=== PATIENT | female | born 1960 | race Caucasian/White ===

== ENCOUNTER 2021-09-01 22:42 | Inpatient (IN) ==
[2021-09-01 23:45] VITALS: BMI 20.9
--- NOTE | 2021-09-02 00:01 | DR.EXTPAIN ---
HPI Time seen Time Seen by Provider: 09/01/21 23:49 PCP Primary Care Physician: TOMASZ Complaint/Symptoms Chief Complaint Doctor Comments: ABDOMINAL PAIN,VOMITING BLOOD AND DIARRHEA. Chief Complaint:: PT ARRIVED HERE VIA EMS. ON ARRIVAL PT C/O ABDOMINAL PAIN, THROWING UP BLOOD,AND BLOODY DIARRHEA. 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 Family History History of Family Medical Conditions: Yes Family Medical History: Hypertension Social History Type of Tobacco Use: Cigarettes Alcohol Use: DAILY Do you use any recreational Drugs:: No Lives With: Family Lives Where: Home Infectious screening In the last 2 months have you had wt loss of >10#?: NO Have you had fever, night sweats or hemotysis?: No Have you traveled outside the country in the last 6 months?: No Isolation: Droplet ROS Review of Systems Constitutional: Malaise Eyes: No Symptoms Reported ENTM: No Symptoms Reported Respiratoy: No Symptoms Reported Cardiovascular: No Symptoms Reported Gastrointestinal/Abdominal: Abdominal Pain Genitourinary: No Symptoms Reported Neurological: No Symptoms Reported Musculoskeletal: Muscle Pain and Other (BILATERAL LOWER LEG PAIN) Integumentary: No Symptoms Reported Hematologic/Lymphatic: No Symptoms Reported, Easy Bruising and Other (RECTAL BLEEDING) Endocrine: No Symptoms Reported Psychiatric: No Symptoms Reported All Other Systems: Reviewed and Negative PE Vital Signs Vitals: Temperature 98.7 F Pulse Rate [Left Radial] 92 Pulse Rate 98 Respiratory Rate 20 Blood Pressure [Left Arm] 115/76 Blood Pressure 117/61 O2 Sat by Pulse Oximetry 98 General Limitations: No Limitations General Appearance: Alert, In No Apparent Distress, Lethargic and In Distress (MODERATE DISTRESS) Head Head Exam: Normal Inspection Eyes Eye exam: Normal Appearance ENT ENT Exam: Normal Exam Neck Neck Exam: Normal Inspection Chest Chest Inspection: Normal Inspection Respiratory Respiratory Exam: Normal Lung Sounds Bilat Cardiovascular Cardiovascular Exam: Regular Rate and Normal Rhythm Abdominal Exam Abdominal Exam: Normal Inspection, Normal Bowel Sounds and Soft Extremities Extremities Exam: Normal Inspection Back Back Exam: Normal Inspection Neurological Neurological Exam: Alert, Oriented X3 and CN II-XII Intact Psychiatric Psychiatric Exam: Normal Affect and Normal Mood Skin Skin Exam: Warm, Dry, Intact and Normal Color MDM Differential Diagnosis Differential Diagnosis: Other (GI BLEED,ABDOMINAL PAIN,ALCOHOL INTOXICATION) COURSE Treatment Treatment: PATIENT WAS ANEMIC WITH HEMAGLOBIN OF 5.4 AND HCT OF 16.2. BLOOD ALCOHOL 44MG/DL. WAS GIVEN DEMEROL 25MG IV FOR PAIN AND ZOFRAN 4MG IV FOR NAUSEA. WILL TYPE AND CROSS AND TRANSFUSE 2UPRBC. TRANSFER FOR LOWER GI BLEED IF NEEDED. CONTACT LOCAL SURGEON TO CONSULT HERE IF POSSIBLE. ORDERED THE 2 UNITS OF BLOOD TO BE TRANSFUSED. SPOKE TO DR BOWERS AT 0630 AM AND HE WILL ACCEPT THE PATIENT FOR ADMISSSION FOR GI BLEED, HYPONATREMIA AND HYPOKALEMIA. THE PATIENT HAD 60MEQ OF EFFERVESCENT POTASSIUM IN ER AND 50MG OF DEMEROL FOR ABDOMINAL PAIN AND ZOFRAN 8MG IV FOR NAUSEA. ROR Labs Reviewed Laboratory Results Reviewed?: Yes (SODIUM 122 AND POTASSIUM OF 2.9.) Result Diagrams: 09/06/21 05:50 09/06/21 05:50 Laboratory: WBC 8.0 X10^3/uL (3.6-10.0) 09/02/21 00:26 RBC 1.89 X10^6/uL (3.5-5.4) L 09/02/21 00:26 Hgb 5.4 g/dL (12.0-16.0) L* 09/02/21 00:26 Hct 16.2 % (36.0-47.0) L* 09/02/21 00:26 MCV 85.4 fL (80.0-100.0) 09/02/21 00:26 MCH 28.3 pg (27.0-34.0) 09/02/21 00:26 MCHC 33.2 g/dL (33.0-35.0) 09/02/21 00:26 RDW 21.7 % (11.6-16.5) H 09/02/21 00:26 Plt Count 583 X10^3/uL (150.0-450.0) H 09/02/21 00:26 Plt Count Comment Increased (ADEQUATE) A 09/02/21 00:26 MPV 6.1 fL (7.4-11.0) L 09/02/21 00:26 Neut % (Auto) 62.8 % (42.0-75.0) 09/02/21 00:26 Lymph % (Auto) 24.9 % (21.0-51.0) 09/02/21 00:26 [place] % (Auto) 11.1 % (0.0-13.0) 09/02/21 00: Eos % (Auto) 0.7 % (0.9-2.9) L 09/02/21 00: Baso % (Auto) 0.5 % (0.2-1.0) 09/02/21 00:26 Neut # (Auto) 5.0 x10^3/uL (2.2-4.8) H 09/02/21 00:26 Lymph # (Auto) 2.0 X10^3/uL (1.3-2.9) 09/02/21 00:26 [place] # (Auto) 0.9 x10^3/uL (0.3-0.8) H 09/02/21 00:26 Eos # (Auto) 0.1 x10^3/uL (0.0-0.2) 09/02/21 00: Baso # (Auto) 0.0 X10^3/uL (0.0-0.1) 09/02/21 00: Absolute Nucleated RBC 0.0 /100WBC 09/02/21 00: Plt Morphology Comment Normal (NORMAL) 09/02/21 00: RBC Morphology Abnormal (NORMAL) A 09/02/21 00:26 Hypochromasia 1+ A 09/02/21 00: Anisocytosis 1+ A 09/02/21 00:26 Sodium 122 mmol/L (136-145) L* 09/02/21 00: Corrected Sodium TNP 09/02/21 00: Potassium 2.9 mmol/L (3.5-5.1) L* 09/02/21 00: Chloride 87 mmol/L (98-107) L 09/02/21 00: Carbon Dioxide 24.8 mmol/L (21-32) 09/02/21 00: BUN 7 mg/dL (7-18) 09/02/21 00: Creatinine 0.48 mg/dL (0.55-1.02) L 09/02/21 00:26 Est GFR (MDRD) Af Amer > 60 (>60) 09/02/21 00:26 Est GFR (MDRD) Non-Af > 60 (>60) 09/02/21 00:26 Glucose 94 mg/dL (65-99) 09/02/21 00:26 Calcium 8.1 mg/dL (8.5-10.1) L 09/02/21 00:26 Corrected Calcium 9.5 mg/dL (8.5-10.1) 09/02/21 00:26 Total Bilirubin 0.30 mg/dL (0.2-1.0) 09/02/21 00:26 AST 20 Units/L (15-37) 09/02/21 00:26 ALT 14 Units/L (12-78) 09/02/21 00:26 Alkaline Phosphatase 97 Units/L (46-116) 09/02/21 00:26 Total Protein 5.9 g/dL (6.4-8.2) L 09/02/21 00:26 Albumin 2.3 g/dL (3.4-5.0) L 09/02/21 00:26 Globulin 3.6 g/dL (2.5-4.5) 09/02/21 00:26 Albumin/Globulin Ratio 0.6 Ratio (1.1-2.1) L 09/02/21 00:26 Ethyl Alcohol mg/dL 44 mg/dL (0-19.9) H 09/02/21 00:26 SARS CoV-2 RNA Rapid STONE Negative (NEGATIVE) 09/01/21 23:54 Blood Type B POSITIVE 09/02/21 06:15 Antibody Screen Positive 09/02/21 06:15 Antibody Identification NEGATIVE BY ARC 09/02/21 06:15 Crossmatch See Detail 09/02/21 06:15 Opioid Opioid Risk Tool Age (Joseph box if 16-45): No History of Preadolescent Sexual Abuse: No Total: 0 Total Score Risk Category: Low Risk Copyright: Mark PARRA predicting aberrant behaviors Instructions Instructions: Alcohol Use Disorder Peptic Ulcer, Kjof-kq-Ftsu Hypokalemia Steps to Quit Smoking, Pema-go-Etuu Upper Endoscopy, Care After Hyponatremia, Ivgv-vz-Jjyq Gastrointestinal Bleeding, Tvqe-og-Xkkz Heart Failure, Diagnosis, Ugfi-vp-Kyrg Iron Deficiency Anemia, Adult, Ertu-dj-Wpyl Forms: Excuse From Work or School Precautions for COVID19 [facility] Social Distancing
[2021-09-02 00:40] LABS: BASOPHILS % (AUTO) 0.5 % (0.2-1.0); EOSINOPHILS # (AUTO) 0.1 x10^3/uL (0.0-0.2); MONOCYTES # (AUTO) 0.9 x10^3/uL (0.3-0.8)
[2021-09-02 00:50] LABS: EOSINOPHILS % (AUTO) 0.7 % (0.9-2.9); LYMPHOCYTES % (AUTO) 24.9 % (21.0-51.0); MEAN CORPUSCULAR HEMOGLOBIN 28.3 pg (27.0-34.0); MEAN CORPUSCULAR HGB CONC 33.2 g/dL (33.0-35.0); MEAN CORPUSCULAR VOLUME 85.4 fL (80.0-100.0); MEAN PLATELET VOLUME 6.1 fL (7.4-11.0); MONOCYTES % (AUTO) 11.1 % (0.0-13.0); NEUTROPHILS % (AUTO) 62.8 % (42.0-75.0); RED BLOOD COUNT 1.89 X10^6/uL (3.5-5.4); RED CELL DISTRIBUTION WIDTH 21.7 % (11.6-16.5)
[2021-09-02 00:56] LABS: HEMATOCRIT 16.2 % (36.0-47.0); HEMOGLOBIN 5.4 g/dL (12.0-16.0)
[2021-09-02] MEDS ORDERED: DEMEROL INJ ONE ×2 (01:04→04:33)
[2021-09-02] MEDS ORDERED: ZOFRAN INJ 4 MG VIAL ONE ×2 (01:05→04:34)
[2021-09-02 01:12] LABS: ALANINE AMINOTRANSFERASE 14 Units/L (12-78); ALBUMIN 2.3 g/dL (3.4-5.0); ALKALINE PHOSPHATASE 97 Units/L (46-116); ASPARTATE AMINO TRANSFERASE 20 Units/L (15-37); BLOOD ALCOHOL 44 mg/dL (0-19.9); BLOOD UREA NITROGEN 7 mg/dL (7-18); CALCIUM 8.1 mg/dL (8.5-10.1); CARBON DIOXIDE 24.8 mmol/L (21-32); CHLORIDE 87 mmol/L (98-107); COR CA(FOR HYPOALB) 9.5 mg/dL (8.5-10.1); CREATININE 0.48 mg/dL (0.55-1.02); TOTAL PROTEIN 5.9 g/dL (6.4-8.2); eGFR NON BLACK RACES > 60 (>60)
[2021-09-02 01:23] LABS: SODIUM 122 mmol/L (136-145)
[2021-09-02] MEDS ORDERED: DEMEROL INJ IM ONE (01:32)
[2021-09-02] MEDS ORDERED: ZOFRAN INJ 4 MG VIAL IVP ONE ×2 (01:33→04:33)
[2021-09-02 02:31] LABS: ANISOCYTOSIS 1+; HYPOCHROMASIA 1+; PLATELET MORPHOLOGY COMMENT NORMAL (NORMAL)
[2021-09-02] MEDS ORDERED: DEMEROL INJ IVP ONE (04:33)
[2021-09-02] MEDS ORDERED: KLOR-CON ONE (06:25)
[2021-09-02] MEDS ORDERED: KLOR-CON PO ONE (06:30)
[2021-09-02] MEDS ORDERED: MORPHINE SULFATE INJ 2 MG INJ ONE (10:08)
[2021-09-02] MEDS ORDERED: XYLOCAINE 2 % (PLAIN) ONE (10:14)
[2021-09-02] MEDS: MORPHINE SULFATE INJ 2 MG INJ IVP PRN ×4 (10:38→23:06)
[2021-09-02] MEDS ORDERED: NS 1,000 ML IV 1,000 ML ONE (10:41)
[2021-09-02] MEDS: NS 1,000 ML IV 1,000 ML IV SCH ×4 (10:50→20:46)
[2021-09-02] MEDS: PROTONIX INJ 40 MG VIAL IVP SCH ×2 (10:50→20:47)
--- NOTE | 2021-09-02 11:30 | DR.H&P ---
H&P - History & Physical for Day of: H&P Date: 09/02/21 - Chief Complaint Chief Complaint: ABDOMINAL PAIN, VOMITING BLOOD, BLOODY DIARRHEA, GENERALIZED WEAKNESS - History of Present Illness History of Present Illness: IS A 61 YEAR OLD WHITE FEMALE. SHE PRESENTED TO THE ER VIA EMS WITH COMPLAINTS OF ABDOMINAL PAIN, VOMITING BLOOD, BLOODY DIARRHEA, AND GENERALIZED WEAKNESS. PATIENT REPORTS THAT SYMPTOMS STARTED EARLIER IN THE DAY. ABDOMINAL PAIN IS DESCRIBED CRAMPING AND IS RATED A 6/10. HER PMH INCLUDES CHF, HTN, APPENDECTOMY. ON ARRIVAL, PATIENT WAS NOTED TO BE WEAK AND LETHARGIC. HER VITALS WERE 99.3-98-18-98%-117/61. LABS WERE OBTAINED. WBC 8.0, RBC 1.89, HGB 5.4, HCT 16.2, PLT COUNT 583, SODIUM 122, POTASSIUM 2.9, CHLORIDE 87, BUN 7, CREATININE 0.48, GLUCOSE 94, CALCIUM 8.1, AST 20, ALT 14, TOTAL PROTEIN 5.9, ALBUMIN 2.3, ETHYL ALC 44. COVID-19 NEGATIVE. IN THE ER, SHE WAS GIVEN DEMEROL 25MG IM X 2 DOSES, ZOFRAN 4MG IV X 2 DOSES, AND POTASSIUM CHLORIDE 60MEQ PO X 1. SHE WAS ADMITTED TO THE HOSPITAL FOR FURTHER EVALUATION AND TREATMENT OF ANEMIA, GI BLEED, HYPONATREMIA, HYPOKALEMIA, AND CHRONIC PAIN. SHE WAS STARTED ON NORMAL SALINE AT 150 ML/HR, PEPCID 20MG IV Q12H, PROTONIX 40MG IV BID, MORPHINE SULFATE 1-2MG IV Q4H PRN PAIN. WE WILL CONSULT FOR POSSIBLE ENDOSCOPY DUE TO GI BLEED. WE WILL TRANSFUSE TWO UNITS OF PACKED RED BLOOD CELLS AND REASSESS H&H AFTER TRANSFUSION. OTHERWISE, WE PLAN TO FOLLOW UP WITH AM LABS AND CONTINUE TO MONITOR. TIME SPENT ON CLINICAL ASSESSMENT, REVIEWING LABS AND IMAGING, DECISION MAKING, AND DOCUMENTATION GREATER THAN 75 MINUTES. 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 - Family History Family Medical History: Hypertension - Social History Type of Tobacco Use: Cigarettes Alcohol Use: DAILY - Medications Home Medications: No Known Drug Allergies Allergy (Verified 08/08/21 22:49) - Review of Systems Constitutional: Weakness Eyes: No Symptoms Reported ENT: No Symptoms Reported Respiratory: No Symptoms Reported Cardiovascular: No Symptoms Reported Gastrointestinal: See HPI, Nausea, Vomiting, Abdominal Pain, Diarrhea, Melena Genitourinary: No Symptoms Reported Musculoskeletal: No Symptoms Reported Skin: No Symptoms Reported Neurological: Weakness - Physical Exam Vital Signs: Temperature 98.7 F Pulse Rate [Left Radial] 92 Pulse Rate 98 Respiratory Rate 20 Blood Pressure [Left Arm] 115/76 Blood Pressure 117/61 O2 Sat by Pulse Oximetry 98 Oriented: Normal Eyes: Normal Ear: Normal Nose: Normal Throat: Normal Respiratory: Diminished Throughout Cardiovascular: Normal : Normal Auscultation: Bowel Sounds: Normal Palpation: Normal Tenderness: Diffuse, Moderate Skin: Normal Musculoskeletal: Normal Psychiatric: Normal Mood Description: Calm Affect: Normal Speech Pattern: Clear - Assessment/Plan (1) Anemia Status: Acute (2) GI bleed Qualifiers: Gastritis type: unspecified gastritis Status: Acute Plan: ADMIT, TRANSFUSE PRBC, NORMAL SALINE AT 150 ML/HR, PEPCID 20MG IV Q12H, PROTONIX 40MG IV BID, MORPHINE SULFATE 1-2MG IV Q4H PRN PAIN. CONSULT GENERAL SURGERY (3) Hyponatremia Status: Acute (4) Hypokalemia Status: Acute (5) Chronic pain Qualifiers: Chronic pain type: chronic pain syndrome Qualified Code(s): G89.4 - Chronic pain syndrome Status: Chronic - Allergies Allergies/Adverse Reactions: Allergies Allergy/AdvReac Type Severity Reaction Status Date / Time No Known Drug Allergies Allergy Verified 08/08/21 22:49
[2021-09-02] MEDS: PEPCID 20 MG IV PREMIX* 20 MG/50 ML BAG IV SCH ×2 (16:22→21:50)
[2021-09-02 18:05] LABS: HEMATOCRIT 13.4 % (36.0-47.0); HEMOGLOBIN 4.4 g/dL (12.0-16.0)
[2021-09-02 18:46] LABS: MAGNESIUM 1.8 mg/dL (1.7-2.9)
[2021-09-02] MEDS ORDERED: NS 50 ML IV 50 ML IV ONE (21:41)
[2021-09-02] MEDS ORDERED: PEPCID 20 MG VIAL ONE (21:42)
[2021-09-02] MEDS ORDERED: POTASSIUM CHL 40 MEQ/NS 0.45% 500 ML IV PRN (21:52)
[2021-09-02] MEDS ORDERED: K-DUR TAB 20 MEQ PO PRN (21:52)
[2021-09-02] MEDS ORDERED: POTASSIUM CHLORIDE LIQ 20 MEQ UDC PO PRN (21:52)
[2021-09-02] MEDS ORDERED: K-RIDER 10 MEQ/NS 100 ML 10 MEQ/100 ML BAG IV PRN (21:52)
[2021-09-02] MEDS ORDERED: MICRO K EXTEN CAP 10 MEQ PO PRN (21:52)
[2021-09-02] MEDS ORDERED: POTASSIUM CHL 60 MEQ/NS 0.45% 500 ML IV PRN (21:52)
[2021-09-02] MEDS ORDERED: KLOR-CON PO PRN (21:52)
[2021-09-02 22:26] LABS: BILIRUBIN,URINE NEGATIVE (NEGATIVE); BLOOD/HEMOGLOBIN,URINE NEGATIVE (NEGATIVE); GLUCOSE, URINE NEGATIVE (NEGATIVE); KETONES,URINE NEGATIVE (NEGATIVE); LEUKOCYTE ESTERASE ,URINE 1+ (NEGATIVE); NITRITES,URINE NEGATIVE (NEGATIVE); PROTEIN,URINE 1+ (NEGATIVE); UROBILINOGEN,URINE 1+ (NORMAL)
[2021-09-02 22:31] LABS: APPEARANCE,URINE CLEAR (CLEAR); COLOR,URINE YELLOW (YELLOW)
[2021-09-02 22:44] LABS: BACTERIA,URINE TRACE /HPF (NEGATIVE); RBC,URINE NONE SEEN /HPF (0-3); SQUAMOUS EPITHELIAL CELL,UR MANY /HPF (NEGATIVE)
[2021-09-02] MEDS: MAGNESIUM SULFATE 1 GRAM/100 mL PREMIX 1 G/100 ML BAG IV PRN ×2 (22:49→23:47)
[2021-09-03] MEDS: NS 1,000 ML IV 1,000 ML IV SCH ×3 (03:59→21:06)
[2021-09-03 06:45] LABS: BASOPHILS # (AUTO) 0.1 X10^3/uL (0.0-0.1); BASOPHILS % (AUTO) 1.2 % (0.2-1.0); EOSINOPHILS % (AUTO) 0.9 % (0.9-2.9); LYMPHOCYTES # (AUTO) 1.8 X10^3/uL (1.3-2.9); LYMPHOCYTES % (AUTO) 39.2 % (21.0-51.0); MEAN CORPUSCULAR HEMOGLOBIN 28.1 pg (27.0-34.0); MEAN CORPUSCULAR HGB CONC 32.2 g/dL (33.0-35.0); MEAN CORPUSCULAR VOLUME 87.2 fL (80.0-100.0); MONOCYTES # (AUTO) 0.6 x10^3/uL (0.3-0.8); MONOCYTES % (AUTO) 13.7 % (0.0-13.0); NEUTROPHILS # (AUTO) 2.1 x10^3/uL (2.2-4.8); RED CELL DISTRIBUTION WIDTH 21.3 % (11.6-16.5); WHITE BLOOD COUNT 4.6 X10^3/uL (3.6-10.0)
[2021-09-03 07:05] LABS: ALANINE AMINOTRANSFERASE 14 Units/L (12-78); ALBUMIN 1.9 g/dL (3.4-5.0); ALKALINE PHOSPHATASE 76 Units/L (46-116); ASPARTATE AMINO TRANSFERASE 22 Units/L (15-37); BLOOD UREA NITROGEN 5 mg/dL (7-18); CALCIUM 7.5 mg/dL (8.5-10.1); CHLORIDE 96 mmol/L (98-107); COR CA(FOR HYPOALB) 9.2 mg/dL (8.5-10.1); CREATININE 0.56 mg/dL (0.55-1.02); MAGNESIUM 2.1 mg/dL (1.7-2.9); SODIUM 127 mmol/L (136-145); eGFR NON BLACK RACES > 60 (>60)
[2021-09-03 07:14] LABS: HEMATOCRIT 12.2 % (36.0-47.0); HEMOGLOBIN 3.9 g/dL (12.0-16.0)
[2021-09-03 07:55] LABS: ANISOCYTOSIS 1+; PLATELET MORPHOLOGY COMMENT ABNORMAL (NORMAL)
--- NOTE | 2021-09-03 08:53 | RAD ---
HISTORYHypertensionSTUDYAP chestCOMPARISONNoneFINDINGSHeart size is normal. There are increased linear densities with slight parenchymal distortion in the left lower lung. No focal consolidation, discrete mass, pleural fluid or hilar enlargement. The right lung is clear. There is significant degenerative arthropathy of the left shoulder.IMPRESSIONFindings described at the left lower lung consistent with mild subsegmental atelectasis or fibrosis.Electronically signed by: JULIANNE MORFIN (Sep 03, 2021 08:52:08)
[2021-09-03] MEDS: PROTONIX INJ 40 MG VIAL IVP SCH ×2 (09:46→21:07)
[2021-09-03] MEDS: PEPCID 20 MG VIAL 20 MG in NS 50 ML IV 50 ML IV SCH ×2 (10:00→21:07)
--- NOTE | 2021-09-03 10:35 | DR.PROGNOT ---
Hospital Progress Notes - Progress Note for Day of: Progress Note Date: 09/03/21 - Chief Complaint Chief Complaint: less abdominal pain today . no SOB , no chest pain .. no nausea , no vomiting and did not have any bowel movement last night or today .. Hgb droped to 3.9 .. iron 9. Albumin 1.9 .. - Past Medical Family Social History Past Med/Fam/Surg Hx: No changes since H&P Allergies: Allergies No Known Drug Allergies Allergy (Verified 08/08/21 22:49) - Review Of Systems ROS: No change since H&P - Vital Signs Vital Signs: Temperature 98.9 F Pulse Rate [Left Radial] 90 Pulse Rate 98 Respiratory Rate 18 Blood Pressure [Left Arm] 95/52 Blood Pressure 117/61 O2 Sat by Pulse Oximetry 100 - Physical Exam Oriented: Normal Eyes: Normal Ear: Normal Nose: Normal Throat: Normal Cardiovascular: Normal : Normal GI:Auscultation: Normal GI:Palpation: Normal GI: Tenderness: Moderate, Other (soft , flat abdomen with only mild to moderate epigastric tenderness . BS+) Skin: Normal Musculoskeletal: Normal Psychiatric: Normal Mood Description: Calm Affect: Normal Speech Pattern: Clear, Appropriate - Laboratory and Diagnostics Result Diagrams: 09/03/21 06:17 09/03/21 06:17 Labs: Laboratory WBC 4.6 X10^3/uL (3.6-10.0) 09/03/21 06:17 RBC 1.40 X10^6/uL (3.5-5.4) L 09/03/21 06:17 Hgb 3.9 g/dL (12.0-16.0) L* 09/03/21 06:17 Hct 12.2 % (36.0-47.0) L* 09/03/21 06:17 MCV 87.2 fL (80.0-100.0) 09/03/21 06:17 MCH 28.1 pg (27.0-34.0) 09/03/21 06:17 MCHC 32.2 g/dL (33.0-35.0) L 09/03/21 06:17 RDW 21.3 % (11.6-16.5) H 09/03/21 06:17 Plt Count 433 X10^3/uL (150.0-450.0) 09/03/21 06:17 Plt Count Comment Adequate (ADEQUATE) 09/03/21 06:17 MPV 6.0 fL (7.4-11.0) L 09/03/21 06:17 Neut % (Auto) 45.0 % (42.0-75.0) 09/03/21 06:17 Lymph % (Auto) 39.2 % (21.0-51.0) 09/03/21 06:17 [place] % (Auto) 13.7 % (0.0-13.0) H 09/03/21 06:17 Eos % (Auto) 0.9 % (0.9-2.9) 09/03/21 06:17 Baso % (Auto) 1.2 % (0.2-1.0) H 09/03/21 06:17 Neut # (Auto) 2.1 x10^3/uL (2.2-4.8) L 09/03/21 06:17 Lymph # (Auto) 1.8 X10^3/uL (1.3-2.9) 09/03/21 06:17 [place] # (Auto) 0.6 x10^3/uL (0.3-0.8) 09/03/21 06:17 Eos # (Auto) 0.0 x10^3/uL (0.0-0.2) 09/03/21 06:17 Baso # (Auto) 0.1 X10^3/uL (0.0-0.1) 09/03/21 06:17 Absolute Nucleated RBC 0.1 /100WBC 09/03/21 06:17 Plt Morphology Comment Abnormal (NORMAL) A 09/03/21 06:17 RBC Morphology Normal (NORMAL) 09/03/21 06:17 Hypochromasia 1+ A 09/02/21 00:26 Anisocytosis 1+ A 09/03/21 06:17 Sodium 127 mmol/L (136-145) L 09/03/21 06:17 Corrected Sodium TNP 09/03/21 06:17 Potassium 3.9 mmol/L (3.5-5.1) 09/03/21 06:17 Chloride 96 mmol/L (98-107) L 09/03/21 06:17 Carbon Dioxide 24.0 mmol/L (21-32) 09/03/21 06:17 BUN 5 mg/dL (7-18) L 09/03/21 06:17 Creatinine 0.56 mg/dL (0.55-1.02) 09/03/21 06:17 Est GFR (MDRD) Af Amer > 60 (>60) 09/03/21 06:17 Est GFR (MDRD) Non-Af > 60 (>60) 09/03/21 06:17 Glucose 89 mg/dL (65-99) 09/03/21 06:17 Calcium 7.5 mg/dL (8.5-10.1) L 09/03/21 06:17 Corrected Calcium 9.2 mg/dL (8.5-10.1) 09/03/21 06:17 Magnesium 2.1 mg/dL (1.7-2.9) 09/03/21 06:17 Iron 9 ug/dL (50-175) L 09/02/21 18:34 Transferrin 199 mg/dL (202-364) L 09/02/21 18:34 Ferritin 13 ng/mL (8-252) 09/02/21 18:34 Total Bilirubin 0.30 mg/dL (0.2-1.0) 09/03/21 06:17 AST 22 Units/L (15-37) 09/03/21 06:17 ALT 14 Units/L (12-78) 09/03/21 06:17 Alkaline Phosphatase 76 Units/L (46-116) 09/03/21 06:17 Total Protein 5.0 g/dL (6.4-8.2) L 09/03/21 06:17 Albumin 1.9 g/dL (3.4-5.0) L 09/03/21 06:17 Globulin 3.1 g/dL (2.5-4.5) 09/03/21 06:17 Albumin/Globulin Ratio 0.6 Ratio (1.1-2.1) L 09/03/21 06:17 Vitamin B12 1636 pg/mL (193-986) H 09/02/21 18:34 Folate 8.6 ng/mL (>8.6) 09/02/21 18:34 Specimen Type Clean catch urine 09/02/21 22:04 Urine Color Yellow (YELLOW) 09/02/21 22:04 Urine Appearance Clear (CLEAR) 09/02/21 22:04 Urine pH 7.0 (5.0 - 8.0) 09/02/21 22:04 Ur Specific [place] 1.010 (1.000-1.030) 09/02/21 22:04 Urine Protein 1+ (NEGATIVE) 09/02/21 22:04 Urine Glucose (UA) Negative (NEGATIVE) 09/02/21 22:04 Urine Ketones Negative (NEGATIVE) 09/02/21 22:04 Urine Occult Blood Negative (NEGATIVE) 09/02/21 22:04 Urine Nitrite Negative (NEGATIVE) 09/02/21 22:04 Urine Bilirubin Negative (NEGATIVE) 09/02/21 22:04 Urine Urobilinogen 1+ (NORMAL) 09/02/21 22:04 Ur Leukocyte Esterase 1+ (NEGATIVE) 09/02/21 22:04 Urine RBC None seen /HPF (0-3) 09/02/21 22:04 Urine WBC 0-2 /HPF (0-5) 09/02/21 22:04 Ur Squamous Epith Cells Many /HPF (NEGATIVE) 09/02/21 22: Amorphous Sediment 1+ /HPF (NEGATIVE) 09/02/21 22:04 Urine Bacteria Trace /HPF (NEGATIVE) 09/02/21 22:04 Ur Culture Indicated? No/not indicated 09/02/21 22:04 Urine Opiates Screen Positive (NEG=<300) A 09/02/21 22:04 Urine Methadone Screen Negative (NEG=<300) 09/02/21 22:04 Ur Barbiturates Screen Negative (NEG=<200) 09/02/21 22:04 Ur Phencyclidine Scrn Negative (NEG=<25) 09/02/21 22:04 Ur Amphetamines Screen Negative (NEG=<1000) 09/02/21 22:04 U Benzodiazepines Scrn Negative (NEG=<200) 09/02/21 22:04 Urine Cocaine Screen Negative (NEG=<300) 09/02/21 22:04 U Marijuana (THC) Screen Negative (NEG=<50) 09/02/21 22:04 Ethyl Alcohol mg/dL 44 mg/dL (0-19.9) H 09/02/21 00:26 SARS CoV-2 RNA Rapid STONE Negative (NEGATIVE) 09/01/21 23:54 Blood Type B POSITIVE 09/02/21 06:15 Antibody Screen Positive 09/02/21 06:15 Antibody Identification NEGATIVE BY ARC 09/02/21 06:15 Crossmatch See Detail 09/02/21 06:15 - Assessment and Plan 1: acute GI bleeding possible bleeding peptic ulcer . severe anemia . alcohol abuse . to trasfuse today . abdominal CT . . EGD in AM .. - Problem Patient Problems: Patient Problems Anemia (Acute) D64.9 GI bleed (Acute) K92.2 Hyponatremia (Acute) E87.1 Hypokalemia (Acute) E87.6 Chronic pain (Chronic) G89.29
[2021-09-03] MEDS ORDERED: ALBUMIN HUMAN 25%- 100 ML 100 ML IV ONE (10:42)
--- NOTE | 2021-09-03 11:23 | CT ---
HISTORYRECTAL BLEEDING, ABDOMINAL PAINSTUDYABDOMEN/PELVIS W/O CONCOMPARISONNoneTECHNIQUEMultiple axial images of the abdomen and pelvis were obtained from the lung bases to the pubic symphysis without the administration of IV contrast. Dose reduction techniques including Automated Exposure Control (AEC) and adjustment of mA and kV were utilized.FINDINGSIncluded lung bases show peripheral scarring. Coronary artery calcifications. Liver, spleen, adrenal glands, pancreas unremarkable. Gallbladder shows evidence of wall thickening, stone, and there is pneumobilia within the biliary system as well as layering within the gallbladder. On axial image 36, coronal image 15, sagittal image 40, there is a suspected tract between the gallbladder and the proximal duodenum adjacent to the gallbladder stone.Tiny nonobstructive bilateral nephrolithiasis. Possible tiny stones at the right distal ureter without obstruction. Urinary bladder grossly unremarkable. No bowel obstruction or overt inflammation. Scattered colonic diverticuli are seen. There is a right femoral central venous catheter terminating at the proximal right common iliac vein.No pneumoperitoneum, ascites, or visible lymphadenopathy. Prominent atherosclerotic calcifications. No acute osseous finding. Degenerative changes in the spine with grade 1/2 L4 anterolisthesis producing at least mild canal stenosis. Uterus and ovaries present.IMPRESSIONAbnormal appearing gallbladder with wall thickening, stone, and layering air with suspected tract from the gallbladder lumen to the proximal duodenum, possibly reflecting internal decompression of acute cholecystitis.Possible tiny nonobstructive distal right ureteral stones. Additional findings as above. No clear explanation for rectal bleeding.Electronically signed by: Eddie Ocampo (Sep 03, 2021 11:21:36)
[2021-09-03] MEDS ORDERED: NS 250 ML IV 250 ML IV ONE ×2 (12:26→16:24)
[2021-09-03] MEDS ORDERED: ALBUMIN HUMAN 25%- 100 ML 100 ML ONE (15:20)
[2021-09-03] MEDS: TYLENOL 325 MG TAB PO PRN (20:30)
[2021-09-03] MEDS ORDERED: NS 100 ML IV 100 ML ONE (22:15)
[2021-09-04] MEDS: MORPHINE SULFATE INJ 2 MG INJ IVP PRN ×4 (00:42→18:40)
[2021-09-04] MEDS ORDERED: NS 100 ML IV 100 ML ONE (02:53)
[2021-09-04] MEDS: NS 1,000 ML IV 1,000 ML IV SCH ×4 (03:03→21:29)
[2021-09-04] MEDS ORDERED: DIPRIVAN VIAL 20 ML ONE (08:00)
[2021-09-04] MEDS ORDERED: LR 1,000 ML IV 1,000 ML IV ONE (08:04)
[2021-09-04] MEDS ORDERED: XYLOCAINE 2 % (PLAIN) ONE (08:07)
[2021-09-04] MEDS ORDERED: KETAMINE HCL ONE (08:07)
--- NOTE | 2021-09-04 08:32 | DR.PROGNOT ---
Hospital Progress Notes - Progress Note for Day of: Progress Note Date: 09/04/21 - Chief Complaint Chief Complaint: EGD today showed large duodenal ulcer . no active bleeding . 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 - Past Medical Family Social History Past Med/Fam/Surg Hx: No changes since H&P Allergies: Allergies No Known Drug Allergies Allergy (Verified 08/08/21 22:49) - Review Of Systems ROS: No change since H&P - Vital Signs Vital Signs: Temperature 98.2 F Pulse Rate [Left Radial] 78 Pulse Rate 98 Respiratory Rate 20 Blood Pressure [Left Arm] 162/75 Blood Pressure 117/61 O2 Sat by Pulse Oximetry 97 - Physical Exam Oriented: Normal Eyes: Normal Ear: Normal Nose: Normal Throat: Normal Cardiovascular: Normal : Normal GI:Auscultation: Normal GI:Palpation: Normal GI: Tenderness: Moderate, Other (soft , flat abdomen with only mild to moderate epigastric tenderness . BS+) Skin: Normal Musculoskeletal: Normal Psychiatric: Normal Mood Description: Calm Affect: Normal Speech Pattern: Clear, Appropriate - Laboratory and Diagnostics Result Diagrams: 09/03/21 06:17 09/03/21 06:17 Labs: Laboratory WBC 4.6 X10^3/uL (3.6-10.0) 09/03/21 06:17 RBC 1.40 X10^6/uL (3.5-5.4) L 09/03/21 06:17 Hgb 3.9 g/dL (12.0-16.0) L* 09/03/21 06:17 Hct 12.2 % (36.0-47.0) L* 09/03/21 06:17 MCV 87.2 fL (80.0-100.0) 09/03/21 06:17 MCH 28.1 pg (27.0-34.0) 09/03/21 06:17 MCHC 32.2 g/dL (33.0-35.0) L 09/03/21 06:17 RDW 21.3 % (11.6-16.5) H 09/03/21 06:17 Plt Count 433 X10^3/uL (150.0-450.0) 09/03/21 06:17 Plt Count Comment Adequate (ADEQUATE) 09/03/21 06:17 MPV 6.0 fL (7.4-11.0) L 09/03/21 06:17 Neut % (Auto) 45.0 % (42.0-75.0) 09/03/21 06:17 Lymph % (Auto) 39.2 % (21.0-51.0) 09/03/21 06:17 [place] % (Auto) 13.7 % (0.0-13.0) H 09/03/21 06:17 Eos % (Auto) 0.9 % (0.9-2.9) 09/03/21 06:17 Baso % (Auto) 1.2 % (0.2-1.0) H 09/03/21 06:17 Neut # (Auto) 2.1 x10^3/uL (2.2-4.8) L 09/03/21 06:17 Lymph # (Auto) 1.8 X10^3/uL (1.3-2.9) 09/03/21 06:17 [place] # (Auto) 0.6 x10^3/uL (0.3-0.8) 09/03/21 06:17 Eos # (Auto) 0.0 x10^3/uL (0.0-0.2) 09/03/21 06:17 Baso # (Auto) 0.1 X10^3/uL (0.0-0.1) 09/03/21 06:17 Absolute Nucleated RBC 0.1 /100WBC 09/03/21 06:17 Plt Morphology Comment Abnormal (NORMAL) A 09/03/21 06:17 RBC Morphology Normal (NORMAL) 09/03/21 06:17 Hypochromasia 1+ A 09/02/21 00:26 Anisocytosis 1+ A 09/03/21 06:17 Sodium 127 mmol/L (136-145) L 09/03/21 06:17 Corrected Sodium TNP 09/03/21 06:17 Potassium 3.9 mmol/L (3.5-5.1) 09/03/21 06:17 Chloride 96 mmol/L (98-107) L 09/03/21 06:17 Carbon Dioxide 24.0 mmol/L (21-32) 09/03/21 06:17 BUN 5 mg/dL (7-18) L 09/03/21 06:17 Creatinine 0.56 mg/dL (0.55-1.02) 09/03/21 06:17 Est GFR (MDRD) Af Amer > 60 (>60) 09/03/21 06:17 Est GFR (MDRD) Non-Af > 60 (>60) 09/03/21 06:17 Glucose 89 mg/dL (65-99) 09/03/21 06:17 Calcium 7.5 mg/dL (8.5-10.1) L 09/03/21 06:17 Corrected Calcium 9.2 mg/dL (8.5-10.1) 09/03/21 06:17 Magnesium 2.1 mg/dL (1.7-2.9) 09/03/21 06:17 Iron 9 ug/dL (50-175) L 09/02/21 18:34 Transferrin 199 mg/dL (202-364) L 09/02/21 18:34 Ferritin 13 ng/mL (8-252) 09/02/21 18:34 Total Bilirubin 0.30 mg/dL (0.2-1.0) 09/03/21 06:17 AST 22 Units/L (15-37) 09/03/21 06:17 ALT 14 Units/L (12-78) 09/03/21 06:17 Alkaline Phosphatase 76 Units/L (46-116) 09/03/21 06:17 Total Protein 5.0 g/dL (6.4-8.2) L 09/03/21 06:17 Albumin 1.9 g/dL (3.4-5.0) L 09/03/21 06:17 Globulin 3.1 g/dL (2.5-4.5) 09/03/21 06:17 Albumin/Globulin Ratio 0.6 Ratio (1.1-2.1) L 09/03/21 06:17 Vitamin B12 1636 pg/mL (193-986) H 09/02/21 18:34 Folate 8.6 ng/mL (>8.6) 09/02/21 18:34 Specimen Type Clean catch urine 09/02/21 22:04 Urine Color Yellow (YELLOW) 09/02/21 22:04 Urine Appearance Clear (CLEAR) 09/02/21 22:04 Urine pH 7.0 (5.0 - 8.0) 09/02/21 22:04 Ur Specific Ackley 1.010 (1.000-1.030) 09/02/21 22:04 Urine Protein 1+ (NEGATIVE) 09/02/21 22:04 Urine Glucose (UA) Negative (NEGATIVE) 09/02/21 22:04 Urine Ketones Negative (NEGATIVE) 09/02/21 22:04 Urine Occult Blood Negative (NEGATIVE) 09/02/21 22:04 Urine Nitrite Negative (NEGATIVE) 09/02/21 22:04 Urine Bilirubin Negative (NEGATIVE) 09/02/21 22:04 Urine Urobilinogen 1+ (NORMAL) 09/02/21 22:04 Ur Leukocyte Esterase 1+ (NEGATIVE) 09/02/21 22:04 Urine RBC None seen /HPF (0-3) 09/02/21 22:04 Urine WBC 0-2 /HPF (0-5) 09/02/21 22:04 Ur Squamous Epith Cells Many /HPF (NEGATIVE) 09/02/21 22:04 Amorphous Sediment 1+ /HPF (NEGATIVE) 09/02/21 22:04 Urine Bacteria Trace /HPF (NEGATIVE) 09/02/21 22:04 Ur Culture Indicated? No/not indicated 09/02/21 22:04 Urine Opiates Screen Positive (NEG=<300) A 09/02/21 22:04 Urine Methadone Screen Negative (NEG=<300) 09/02/21 22:04 Ur Barbiturates Screen Negative (NEG=<200) 09/02/21 22:04 Ur Phencyclidine Scrn Negative (NEG=<25) 09/02/21 22:04 Ur Amphetamines Screen Negative (NEG=<1000) 09/02/21 22:04 U Benzodiazepines Scrn Negative (NEG=<200) 09/02/21 22:04 Urine Cocaine Screen Negative (NEG=<300) 09/02/21 22:04 U Marijuana (THC) Screen Negative (NEG=<50) 09/02/21 22:04 Ethyl Alcohol mg/dL 44 mg/dL (0-19.9) H 09/02/21 00:26 SARS CoV-2 RNA Rapid STONE Negative (NEGATIVE) 09/01/21 23:54 Blood Type B POSITIVE 09/02/21 06:15 Antibody Screen Positive 09/02/21 06:15 Antibody Identification NEGATIVE BY ARC 09/02/21 06:15 Crossmatch See Detail 09/02/21 06:15 - Assessment and Plan 1: large duodenal ulcer . gastro duodenitis . esophagitis . severe anemia . maybe cholecysto-duodenal fistula with pneumobilia. alcohol abuse . Covid19 . same medications .. added Carafate PO . - Problem Patient Problems: Patient Problems Anemia (Acute) D64.9 GI bleed (Acute) K92.2 Hyponatremia (Acute) E87.1 Hypokalemia (Acute) E87.6 Chronic pain (Chronic) G89.29
[2021-09-04] MEDS: PROTONIX INJ 40 MG VIAL IVP SCH ×2 (08:53→21:30)
[2021-09-04] MEDS: PEPCID 20 MG VIAL 20 MG in NS 50 ML IV 50 ML IV SCH ×2 (08:54→21:18)
[2021-09-04 08:56] LABS: BASOPHILS % (AUTO) 0.6 % (0.2-1.0); EOSINOPHILS # (AUTO) 0.1 x10^3/uL (0.0-0.2); EOSINOPHILS % (AUTO) 1.2 % (0.9-2.9); HEMATOCRIT 38.6 % (36.0-47.0); LYMPHOCYTES # (AUTO) 1.2 X10^3/uL (1.3-2.9); LYMPHOCYTES % (AUTO) 21.3 % (21.0-51.0); MEAN CORPUSCULAR HEMOGLOBIN 29.3 pg (27.0-34.0); MEAN CORPUSCULAR HGB CONC 33.8 g/dL (33.0-35.0); MEAN CORPUSCULAR VOLUME 86.7 fL (80.0-100.0); MEAN PLATELET VOLUME 6.2 fL (7.4-11.0); MONOCYTES # (AUTO) 0.7 x10^3/uL (0.3-0.8); MONOCYTES % (AUTO) 12.6 % (0.0-13.0); NEUTROPHILS # (AUTO) 3.6 x10^3/uL (2.2-4.8); NEUTROPHILS % (AUTO) 64.3 % (42.0-75.0); RED BLOOD COUNT 4.46 X10^6/uL (3.5-5.4); WHITE BLOOD COUNT 5.6 X10^3/uL (3.6-10.0)
[2021-09-04 09:18] LABS: SODIUM 130 mmol/L (136-145)
[2021-09-04 09:28] LABS: HEMOGLOBIN 13.1 g/dL (12.0-16.0)
[2021-09-04 09:40] LABS: ALANINE AMINOTRANSFERASE 18 Units/L (12-78); ALBUMIN 3.1 g/dL (3.4-5.0); ALKALINE PHOSPHATASE 100 Units/L (46-116); ASPARTATE AMINO TRANSFERASE 27 Units/L (15-37); BLOOD UREA NITROGEN 3 mg/dL (7-18); CARBON DIOXIDE 24.1 mmol/L (21-32); CHLORIDE 99 mmol/L (98-107); COR CA(FOR HYPOALB) 8.7 mg/dL (8.5-10.1); CREATININE 0.51 mg/dL (0.55-1.02); eGFR NON BLACK RACES > 60 (>60)
[2021-09-04] MEDS: LEVSIN/MAALOX/LIDOC VISC PO SCH ×4 (10:34→21:17)
[2021-09-04] MEDS: CARAFATE PO SCH ×3 (10:35→21:19)
--- NOTE | 2021-09-04 10:40 | PCM.PROG ---
Progress Note - Progress Note for Day of Date of Exam: 09/03/21 - Subjective Subjective: WAS ADMITTED ON 09/02 FOR TREATMENT OF SYMPTOMATIC ANEMIA, GI BLEED, HYPONATREMIA, AND HYPOKALEMIA. SHE HAS NOT RECEIVED PRBC AT THIS TIME DUE TO PRESENCE OF ANTIBODIES IN HER BLOOD. PRBC SHOULD BE AVAILABLE TODAY. TODAY, SHE IS ALERT AND ORIENTED, LYING IN BED ON MORNING ROUNDS. SHE CONTINUES WITH GENERALIZED WEAKNESS. SHE ALSO CONTINUES WITH NAUSEA AT TIMES. SHE IS HAVING LESS ABDOMINAL PAIN TODAY AND DIARRHEA HAS STOPPED. ON EXAMINATION, HEART IS REGULAR IN RATE AND RHYTHM. BILATERAL LUNGS CLEAR TO AUSCULTATION. ABDOMEN IS FLAT, SOFT, AND NOTED WITH DIFFUSE TENDERNESS. NORMAL BOWEL SOUNDS NOTED IN ALL QUADRANTS. HER VITALS THIS MORNING ARE: 97.8-83-18-99%-199/83. LABS WERE OB TAINED. ABNORMAL LAB VALUES INCLUDE THE FOLLOWING: RBC 1.40, HGB 3.9, HCT 12.2, SODIUM 127, CHLORIDE 96, BUN 5, CALCIUM 7.5, TOTAL PROTEIN 5.0, ALBUMIN 1.9. ANEMIA PANEL OBTAINED YESTERDAY AND REVEALED IRON 9, TRANSFERRIN 199, FERRITIN 13, VITAMIN B12 1636, FOLATE 8.6. AN ABDOMEN/PELVIS CT WITHOUT CONTRAST WAS OBTAINED THIS MORNING AND REVEALED: Abnormal appearing gallbladder with wall thickening, stone, and layering air with suspected tract from the gallbladder lumen to the proximal duodenum, possibly reflecting internal decompression of acute cholecystitis. Possible tiny nonobstructive distal right ureteral stones. No clear explanation for rectal bleeding. HAS CONSULTED WITH PATIENT AND PLANS FOR UPPER ENDOSCOPY TOMORROW MORNING. WE ARE IN AGREEMENT WITH PLANS. SHE IS CURRENTLY RECEIVING NORMAL SALINE AT 150 ML/HR, PEPCID 20MG IV Q12H, PROTONIX 40MG IV BID, MORPHINE SULFATE 1-2MG IV Q4H PRN PAIN, AND THE POTASSIUM AND MAGNESIUM PROTOCOLS. WE WILL CONTINUE WITH CURRENT PLAN OF CARE TODAY. OTHERWISE, WE PLAN TO FOLLOW UP WITH AM LABS AND CONTINUE TO MONITOR. TIME SPENT ON CLINICAL ASSESSMENT, REVIEWING LABS AND IMAGING, DECISION MAKING, AND DOCUMENTATION GREATER THAN 45 MINUTES. - Past Medical Family Social History Past Med/Fam/Surg Hx: No changes since H&P Allergies: Allergies No Known Drug Allergies Allergy (Verified 08/08/21 22:49) - Review of Systems ROS: No change since H&P - Vital Signs and I&O's Vital Signs: Temperature 97.8 F Pulse Rate [Left Radial] 83 Pulse Rate 98 Respiratory Rate 18 Blood Pressure [Left Arm] 199/83 Blood Pressure 117/61 O2 Sat by Pulse Oximetry 99 Intake and Output: Intake & Output 09/01/21 09/02/21 09/03/21 09/04/21 11:59 11:59 11:59 11:59 Intake Total 1971 / 1971 3050 / 3050 Output Total 600 / 600 Balance 1372 / 1372 3050 / 3050 - Physical Exam Oriented: Normal Eyes: Normal Ear: Normal Nose: Normal Throat: Normal Respiratory: Generalized, Diminished Cardiovascular: Normal : Normal Auscultation: Bowel Sounds: Normal Palpation: Normal Tenderness: Mild, Other (soft , flat abdomen with only mild to moderate epigastric tenderness . BS+) Skin: Normal Musculoskeletal: Normal Psychiatric: Normal Mood Description: Calm Affect: Normal Speech Pattern: Clear, Appropriate - Laboratory and Diagnostics Result Diagrams: 09/04/21 08:50 09/04/21 09:18 Labs: Laboratory WBC 5.6 X10^3/uL (3.6-10.0) 09/04/21 08:50 RBC 4.46 X10^6/uL (3.5-5.4) 09/04/21 08:50 Hgb 13.1 g/dL (12.0-16.0) D 09/04/21 08:50 Hct 38.6 % (36.0-47.0) 09/04/21 08:50 MCV 86.7 fL (80.0-100.0) 09/04/21 08:50 MCH 29.3 pg (27.0-34.0) 09/04/21 08:50 MCHC 33.8 g/dL (33.0-35.0) 09/04/21 08:50 RDW 17.0 % (11.6-16.5) H 09/04/21 08:50 Plt Count 323 X10^3/uL (150.0-450.0) 09/04/21 08:50 Plt Count Comment Adequate (ADEQUATE) 09/03/21 06:17 MPV 6.2 fL (7.4-11.0) L 09/04/21 08:50 Neut % (Auto) 64.3 % (42.0-75.0) 09/04/21 08:50 Lymph % (Auto) 21.3 % (21.0-51.0) 09/04/21 08:50 [place] % (Auto) 12.6 % (0.0-13.0) 09/04/21 08:50 Eos % (Auto) 1.2 % (0.9-2.9) 09/04/21 08:50 Baso % (Auto) 0.6 % (0.2-1.0) 09/04/21 08:50 Neut # (Auto) 3.6 x10^3/uL (2.2-4.8) 09/04/21 08:50 Lymph # (Auto) 1.2 X10^3/uL (1.3-2.9) L 09/04/21 08:50 [place] # (Auto) 0.7 x10^3/uL (0.3-0.8) 09/04/21 08:50 Eos # (Auto) 0.1 x10^3/uL (0.0-0.2) 09/04/21 08:50 Baso # (Auto) 0.0 X10^3/uL (0.0-0.1) 09/04/21 08:50 Absolute Nucleated RBC 0.2 /100WBC 09/04/21 08:50 Plt Morphology Comment Abnormal (NORMAL) A 09/03/21 06:17 RBC Morphology Normal (NORMAL) 09/03/21 06:17 Hypochromasia 1+ A 09/02/21 00:26 Anisocytosis 1+ A 09/03/21 06:17 Sodium 130 mmol/L (136-145) L 09/04/21 09:18 Corrected Sodium TNP 09/04/21 09:18 Potassium 3.6 mmol/L (3.5-5.1) 09/04/21 09:18 Chloride 99 mmol/L (98-107) 09/04/21 09:18 Carbon Dioxide 24.1 mmol/L (21-32) 09/04/21 09:18 BUN 3 mg/dL (7-18) L 09/04/21 09:18 Creatinine 0.51 mg/dL (0.55-1.02) L 09/04/21 09:18 Est GFR (MDRD) Af Amer > 60 (>60) 09/04/21 09:18 Est GFR (MDRD) Non-Af > 60 (>60) 09/04/21 09:18 Glucose 97 mg/dL (65-99) 09/04/21 09:18 Calcium 8.0 mg/dL (8.5-10.1) L 09/04/21 09:18 Corrected Calcium 8.7 mg/dL (8.5-10.1) 09/04/21 09:18 Magnesium 2.1 mg/dL (1.7-2.9) 09/03/21 06:17 Iron 9 ug/dL (50-175) L 09/02/21 18:34 Transferrin 199 mg/dL (202-364) L 09/02/21 18:34 Ferritin 13 ng/mL (8-252) 09/02/21 18:34 Total Bilirubin 0.90 mg/dL (0.2-1.0) 09/04/21 09:18 AST 27 Units/L (15-37) 09/04/21 09:18 ALT 18 Units/L (12-78) 09/04/21 09:18 Alkaline Phosphatase 100 Units/L (46-116) 09/04/21 09:18 Total Protein 7.0 g/dL (6.4-8.2) 09/04/21 09:18 Albumin 3.1 g/dL (3.4-5.0) L 09/04/21 09:18 Globulin 3.9 g/dL (2.5-4.5) 09/04/21 09:18 Albumin/Globulin Ratio 0.8 Ratio (1.1-2.1) L 09/04/21 09:18 Vitamin B12 1636 pg/mL (193-986) H 09/02/21 18:34 Folate 8.6 ng/mL (>8.6) 09/02/21 18:34 Specimen Type Clean catch urine 09/02/21 22:04 Urine Color Yellow (YELLOW) 09/02/21 22:04 Urine Appearance Clear (CLEAR) 09/02/21 22:04 Urine pH 7.0 (5.0 - 8.0) 09/02/21 22:04 Ur Specific [place] 1.010 (1.000-1.030) 09/02/21 22:04 Urine Protein 1+ (NEGATIVE) 09/02/21 22:04 Urine Glucose (UA) Negative (NEGATIVE) 09/02/21 22:04 Urine Ketones Negative (NEGATIVE) 09/02/21 22:04 Urine Occult Blood Negative (NEGATIVE) 09/02/21 22:04 Urine Nitrite Negative (NEGATIVE) 09/02/21 22:04 Urine Bilirubin Negative (NEGATIVE) 09/02/21 22:04 Urine Urobilinogen 1+ (NORMAL) 09/02/21 22:04 Ur Leukocyte Esterase 1+ (NEGATIVE) 09/02/21 22:04 Urine RBC None seen /HPF (0-3) 09/02/21 22:04 Urine WBC 0-2 /HPF (0-5) 09/02/21 22:04 Ur Squamous Epith Cells Many /HPF (NEGATIVE) 09/02/21 22:04 Amorphous Sediment 1+ /HPF (NEGATIVE) 09/02/21 22:04 Urine Bacteria Trace /HPF (NEGATIVE) 09/02/21 22:04 Ur Culture Indicated? No/not indicated 09/02/21 22:04 Urine Opiates Screen Positive (NEG=<300) A 09/02/21 22:04 Urine Methadone Screen Negative (NEG=<300) 09/02/21 22:04 Ur Barbiturates Screen Negative (NEG=<200) 09/02/21 22:04 Ur Phencyclidine Scrn Negative (NEG=<25) 09/02/21 22:04 Ur Amphetamines Screen Negative (NEG=<1000) 09/02/21 22:04 U Benzodiazepines Scrn Negative (NEG=<200) 09/02/21 22:04 Urine Cocaine Screen Negative (NEG=<300) 09/02/21 22:04 U Marijuana (THC) Screen Negative (NEG=<50) 09/02/21 22:04 Ethyl Alcohol mg/dL 44 mg/dL (0-19.9) H 09/02/21 00:26 SARS CoV-2 RNA Rapid STONE Negative (NEGATIVE) 09/01/21 23:54 Tissue Pathology To follow 09/04/21 08:16 Blood Type B POSITIVE 09/02/21 06:15 Antibody Screen Positive 09/02/21 06:15 Antibody Identification NEGATIVE BY ARC 09/02/21 06:15 Crossmatch See Detail 09/02/21 06:15 - Plan (1) GI bleed Status: Acute Qualifiers: Gastritis type: unspecified gastritis Plan: TRANSFUSE PRBC, NORMAL SALINE AT 150 ML/HR, PEPCID 20MG IV Q12H, PROTONIX 40MG IV BID, MORPHINE SULFATE 1-2MG IV Q4H PRN PAIN. CONSULT GENERAL SURGERY (2) Anemia Status: Acute Qualifiers: Anemia type: iron deficiency Iron deficiency anemia type: chronic blood loss Qualified Code(s): D50.0 - Iron deficiency anemia secondary to blood loss (chronic) (3) Hyponatremia Status: Acute (4) Hypokalemia Status: Acute (5) Chronic pain Status: Chronic Qualifiers: Chronic pain type: chronic pain syndrome Qualified Code(s): G89.4 - Chronic pain syndrome
[2021-09-04] MEDS: NICOTINE PATCH TD SCH (10:56)
[2021-09-04] MEDS: NORCO 5/325 MG TAB PO PRN ×2 (15:02→21:19)
[2021-09-05] MEDS: MORPHINE SULFATE INJ 2 MG INJ IVP PRN ×4 (02:12→23:16)
[2021-09-05] MEDS: NS 1,000 ML IV 1,000 ML IV SCH ×3 (02:23→20:30)
[2021-09-05] MEDS: CARAFATE PO SCH ×4 (05:57→20:31)
[2021-09-05 06:07] LABS: BASOPHILS % (AUTO) 0.5 % (0.2-1.0); EOSINOPHILS # (AUTO) 0.1 x10^3/uL (0.0-0.2); EOSINOPHILS % (AUTO) 1.1 % (0.9-2.9); HEMATOCRIT 38.4 % (36.0-47.0); HEMOGLOBIN 13.1 g/dL (12.0-16.0); LYMPHOCYTES # (AUTO) 1.6 X10^3/uL (1.3-2.9); LYMPHOCYTES % (AUTO) 19.5 % (21.0-51.0); MEAN CORPUSCULAR HEMOGLOBIN 29.2 pg (27.0-34.0); MEAN CORPUSCULAR HGB CONC 34.2 g/dL (33.0-35.0); MEAN CORPUSCULAR VOLUME 85.3 fL (80.0-100.0); MEAN PLATELET VOLUME 6.4 fL (7.4-11.0); MONOCYTES # (AUTO) 1.1 x10^3/uL (0.3-0.8); MONOCYTES % (AUTO) 13.7 % (0.0-13.0); NEUTROPHILS # (AUTO) 5.2 x10^3/uL (2.2-4.8); NEUTROPHILS % (AUTO) 65.2 % (42.0-75.0); RED BLOOD COUNT 4.51 X10^6/uL (3.5-5.4); RED CELL DISTRIBUTION WIDTH 16.9 % (11.6-16.5)
[2021-09-05 06:35] LABS: ALANINE AMINOTRANSFERASE 14 Units/L (12-78); ALBUMIN 2.9 g/dL (3.4-5.0); ALKALINE PHOSPHATASE 94 Units/L (46-116); ASPARTATE AMINO TRANSFERASE 24 Units/L (15-37); BLOOD UREA NITROGEN 5 mg/dL (7-18); CALCIUM 8.1 mg/dL (8.5-10.1); CARBON DIOXIDE 24.6 mmol/L (21-32); CHLORIDE 95 mmol/L (98-107); SODIUM 129 mmol/L (136-145); eGFR NON BLACK RACES > 60 (>60)
[2021-09-05] MEDS: LEVSIN/MAALOX/LIDOC VISC PO SCH ×4 (08:41→20:32)
[2021-09-05] MEDS: PEPCID 20 MG VIAL 20 MG in NS 50 ML IV 50 ML IV SCH ×2 (08:49→20:32)
[2021-09-05] MEDS: NICOTINE PATCH TD SCH (08:50)
[2021-09-05] MEDS: PROTONIX INJ 40 MG VIAL IVP SCH ×2 (08:52→20:31)
--- NOTE | 2021-09-05 09:41 | PCM.PROG ---
Progress Note - Progress Note for Day of Date of Exam: 09/05/21 - Subjective Subjective: WAS ADMITTED ON 09/02 FOR TREATMENT OF SYMPTOMATIC ANEMIA, GI BLEED, HYPONATREMIA, AND HYPOKALEMIA. SHE HAS RECEIVED FOUR UNITS OF PACKED RED BLOOD CELLS SINCE ADMISSION. TODAY, SHE IS ALERT AND ORIENTED, LYING IN BED ON MORNING ROUNDS. SHE IS HAVING LESS ABDOMINAL PAIN TODAY AND DIARRHEA HAS STOPPED. ON EXAMINATION, HEART IS REGULAR IN RATE AND RHYTHM. BILATERAL LUNGS CLEAR TO AUSCULTATION. ABDOMEN IS FLAT, SOFT, AND NOTED WITH DIFFUSE TENDERNESS. NORMAL BOWEL SOUNDS NOTED IN ALL QUADRANTS. HER VITALS THIS MORNING ARE: 98.2-78-20-97%-162/75. LABS WERE OBTAINED. WBC 5.6, RBC 4.46, HGB 13.1, HCT 38.6, SODIUM 129, POTASSIUM 3.7, CHLORIDE 95, BUN 5, CREATININE 0.50, GLUCOSE 90, CALCIUM 8.1, ALBUMIN 2.9. HAS CONSULTED WITH PATIENT AND PLANS FOR UPPER ENDOSCOPY TODAY. WE ARE IN AGREEMENT WITH PLANS. SHE IS CURRENTLY RECEIVING NORMAL SALINE AT 150 ML/HR, PEPCID 20MG IV Q12H, PROTONIX 40MG IV BID, MORPHINE SULFATE 1-2MG IV Q4H PRN PAIN, AND THE POTASSIUM AND MAGNESIUM PROTOCOLS. WE WILL CONTINUE WITH CURRENT PLAN OF CARE TODAY. OTHERWISE, WE PLAN TO FOLLOW UP WITH AM LABS AND CONTINUE TO MONITOR. TIME SPENT ON CLINICAL ASSESSMENT, REVIEWING LABS AND IMAGING, DECISION MAKING, AND DOCUMENTATION GREATER THAN 45 MINUTES. - Past Medical Family Social History Past Med/Fam/Surg Hx: No changes since H&P Allergies: Allergies No Known Drug Allergies Allergy (Verified 08/08/21 22:49) - Review of Systems ROS: No change since H&P - Vital Signs and I&O's Vital Signs: Temperature 97.4 F Pulse Rate [Left Radial] 82 Pulse Rate 98 Respiratory Rate 18 Blood Pressure [Left Arm] 165/81 Blood Pressure 117/61 O2 Sat by Pulse Oximetry 97 Intake and Output: Intake & Output 09/02/21 09/03/21 09/04/21 09/05/21 11:59 11:59 11:59 11:59 Intake Total 1971 / 1971 3050 / 3050 3068 / 3068 Output Total 600 / 600 Balance 1372 / 1372 3050 / 3050 3068 / 3068 - Physical Exam Oriented: Normal Eyes: Normal Ear: Normal Nose: Normal Throat: Normal Respiratory: Generalized, Diminished Cardiovascular: Normal : Normal Auscultation: Bowel Sounds: Normal Palpation: Normal Tenderness: Mild, Other (soft , flat abdomen with only mild to moderate epigastric tenderness . BS+) Skin: Normal Musculoskeletal: Normal Psychiatric: Normal Mood Description: Calm Affect: Normal Speech Pattern: Clear - Laboratory and Diagnostics Result Diagrams: 09/05/21 05:43 09/05/21 05:43 Labs: Laboratory WBC 8.0 X10^3/uL (3.6-10.0) 09/05/21 05:43 RBC 4.51 X10^6/uL (3.5-5.4) 09/05/21 05:43 Hgb 13.1 g/dL (12.0-16.0) 09/05/21 05:43 Hct 38.4 % (36.0-47.0) 09/05/21 05:43 MCV 85.3 fL (80.0-100.0) 09/05/21 05:43 MCH 29.2 pg (27.0-34.0) 09/05/21 05:43 MCHC 34.2 g/dL (33.0-35.0) 09/05/21 05:43 RDW 16.9 % (11.6-16.5) H 09/05/21 05:43 Plt Count 384 X10^3/uL (150.0-450.0) 09/05/21 05:43 Plt Count Comment Adequate (ADEQUATE) 09/03/21 06:17 MPV 6.4 fL (7.4-11.0) L 09/05/21 05:43 Neut % (Auto) 65.2 % (42.0-75.0) 09/05/21 05:43 Lymph % (Auto) 19.5 % (21.0-51.0) L 09/05/21 05:43 [place] % (Auto) 13.7 % (0.0-13.0) H 09/05/21 05:43 Eos % (Auto) 1.1 % (0.9-2.9) 09/05/21 05:43 Baso % (Auto) 0.5 % (0.2-1.0) 09/05/21 05:43 Neut # (Auto) 5.2 x10^3/uL (2.2-4.8) H 09/05/21 05:43 Lymph # (Auto) 1.6 X10^3/uL (1.3-2.9) 09/05/21 05:43 [place] # (Auto) 1.1 x10^3/uL (0.3-0.8) H 09/05/21 05:43 Eos # (Auto) 0.1 x10^3/uL (0.0-0.2) 09/05/21 05:43 Baso # (Auto) 0.0 X10^3/uL (0.0-0.1) 09/05/21 05:43 Absolute Nucleated RBC 0.1 /100WBC 09/05/21 05:43 Plt Morphology Comment Abnormal (NORMAL) A 09/03/21 06:17 RBC Morphology Normal (NORMAL) 09/03/21 06:17 Hypochromasia 1+ A 09/02/21 00:26 Anisocytosis 1+ A 09/03/21 06:17 Sodium 129 mmol/L (136-145) L 09/05/21 05:43 Corrected Sodium TNP 09/05/21 05:43 Potassium 3.7 mmol/L (3.5-5.1) 09/05/21 05:43 Chloride 95 mmol/L (98-107) L 09/05/21 05:43 Carbon Dioxide 24.6 mmol/L (21-32) 09/05/21 05:43 BUN 5 mg/dL (7-18) L 09/05/21 05:43 Creatinine 0.50 mg/dL (0.55-1.02) L 09/05/21 05:43 Est GFR (MDRD) Af Amer > 60 (>60) 09/05/21 05:43 Est GFR (MDRD) Non-Af > 60 (>60) 09/05/21 05:43 Glucose 90 mg/dL (65-99) 09/05/21 05:43 Calcium 8.1 mg/dL (8.5-10.1) L 09/05/21 05:43 Corrected Calcium 9.0 mg/dL (8.5-10.1) 09/05/21 05:43 Magnesium 2.1 mg/dL (1.7-2.9) 09/03/21 06:17 Iron 9 ug/dL (50-175) L 09/02/21 18:34 Transferrin 199 mg/dL (202-364) L 09/02/21 18:34 Ferritin 13 ng/mL (8-252) 09/02/21 18:34 Total Bilirubin 0.50 mg/dL (0.2-1.0) 09/05/21 05:43 AST 24 Units/L (15-37) 09/05/21 05:43 ALT 14 Units/L (12-78) 09/05/21 05:43 Alkaline Phosphatase 94 Units/L (46-116) 09/05/21 05:43 Total Protein 7.0 g/dL (6.4-8.2) 09/05/21 05:43 Albumin 2.9 g/dL (3.4-5.0) L 09/05/21 05:43 Globulin 4.1 g/dL (2.5-4.5) 09/05/21 05:43 Albumin/Globulin Ratio 0.7 Ratio (1.1-2.1) L 09/05/21 05:43 Vitamin B12 1636 pg/mL (193-986) H 09/02/21 18:34 Folate 8.6 ng/mL (>8.6) 09/02/21 18:34 Specimen Type Clean catch urine 09/02/21 22:04 Urine Color Yellow (YELLOW) 09/02/21 22:04 Urine Appearance Clear (CLEAR) 09/02/21 22:04 Urine pH 7.0 (5.0 - 8.0) 09/02/21 22:04 Ur Specific [place] 1.010 (1.000-1.030) 09/02/21 22:04 Urine Protein 1+ (NEGATIVE) 09/02/21 22:04 Urine Glucose (UA) Negative (NEGATIVE) 09/02/21 22:04 Urine Ketones Negative (NEGATIVE) 09/02/21 22:04 Urine Occult Blood Negative (NEGATIVE) 09/02/21 22:04 Urine Nitrite Negative (NEGATIVE) 09/02/21 22:04 Urine Bilirubin Negative (NEGATIVE) 09/02/21 22:04 Urine Urobilinogen 1+ (NORMAL) 09/02/21 22:04 Ur Leukocyte Esterase 1+ (NEGATIVE) 09/02/21 22:04 Urine RBC None seen /HPF (0-3) 09/02/21 22:04 Urine WBC 0-2 /HPF (0-5) 09/02/21 22:04 Ur Squamous Epith Cells Many /HPF (NEGATIVE) 09/02/21 22:04 Amorphous Sediment 1+ /HPF (NEGATIVE) 09/02/21 22:04 Urine Bacteria Trace /HPF (NEGATIVE) 09/02/21 22:04 Ur Culture Indicated? No/not indicated 09/02/21 22:04 Urine Opiates Screen Positive (NEG=<300) A 09/02/21 22:04 Urine Methadone Screen Negative (NEG=<300) 09/02/21 22:04 Ur Barbiturates Screen Negative (NEG=<200) 09/02/21 22:04 Ur Phencyclidine Scrn Negative (NEG=<25) 09/02/21 22:04 Ur Amphetamines Screen Negative (NEG=<1000) 09/02/21 22:04 U Benzodiazepines Scrn Negative (NEG=<200) 09/02/21 22:04 Urine Cocaine Screen Negative (NEG=<300) 09/02/21 22:04 U Marijuana (THC) Screen Negative (NEG=<50) 09/02/21 22:04 Ethyl Alcohol mg/dL 44 mg/dL (0-19.9) H 09/02/21 00:26 SARS CoV-2 RNA Rapid STONE Negative (NEGATIVE) 09/01/21 23:54 Tissue Pathology To follow 09/04/21 08:16 Blood Type B POSITIVE 09/02/21 06:15 Antibody Screen Positive 09/02/21 06:15 Antibody Identification NEGATIVE BY ARC 09/02/21 06:15 Crossmatch See Detail 09/02/21 06:15 - Plan (1) GI bleed Status: Acute Qualifiers: Gastritis type: unspecified gastritis Plan: EGD TODAY, NORMAL SALINE AT 150 ML/HR, PEPCID 20MG IV Q12H, PROTONIX 40MG IV BID, MORPHINE SULFATE 1-2MG IV Q4H PRN PAIN. CONSULT GENERAL SURGERY (2) Anemia Status: Acute Qualifiers: Anemia type: iron deficiency Iron deficiency anemia type: chronic blood loss Qualified Code(s): D50.0 - Iron deficiency anemia secondary to blood loss (chronic) (3) Hyponatremia Status: Acute (4) Hypokalemia Status: Acute (5) Chronic pain Status: Chronic Qualifiers: Chronic pain type: chronic pain syndrome Qualified Code(s): G89.4 - Chronic pain syndrome
[2021-09-05] MEDS: NORCO 5/325 MG TAB PO PRN ×2 (11:20→20:30)
--- NOTE | 2021-09-05 12:01 | DR.PROGNOT ---
Hospital Progress Notes - Progress Note for Day of: Progress Note Date: 09/05/21 - Chief Complaint Chief Complaint: c/o back pain.. nonausea , no vomiting and tolerating diet . no bleeding .. stable Hgb, Hct .. normal [place]/CREAT - Past Medical Family Social History Past Med/Fam/Surg Hx: No changes since H&P Allergies: Allergies No Known Drug Allergies Allergy (Verified 08/08/21 22:49) - Review Of Systems ROS: No change since H&P - Vital Signs Vital Signs: Temperature 97.8 F Pulse Rate [Left Radial] 79 Pulse Rate 98 Respiratory Rate 22 Blood Pressure [Left Arm] 145/75 Blood Pressure 117/61 O2 Sat by Pulse Oximetry 95 - Physical Exam Oriented: Normal Eyes: Normal Ear: Normal Nose: Normal Throat: Normal Respiratory: Generalized, Diminished Cardiovascular: Normal : Normal GI:Auscultation: Normal GI:Palpation: Normal GI: Tenderness: Mild, Other (soft , flat abdomen with only mild to moderate epigastric tenderness . BS+) Skin: Normal Musculoskeletal: Normal Psychiatric: Normal Mood Description: Calm Affect: Normal Speech Pattern: Clear - Laboratory and Diagnostics Result Diagrams: 09/05/21 05:43 09/05/21 05:43 Labs: Laboratory WBC 8.0 X10^3/uL (3.6-10.0) 09/05/21 05:43 RBC 4.51 X10^6/uL (3.5-5.4) 09/05/21 05:43 Hgb 13.1 g/dL (12.0-16.0) 09/05/21 05:43 Hct 38.4 % (36.0-47.0) 09/05/21 05:43 MCV 85.3 fL (80.0-100.0) 09/05/21 05:43 MCH 29.2 pg (27.0-34.0) 09/05/21 05:43 MCHC 34.2 g/dL (33.0-35.0) 09/05/21 05:43 RDW 16.9 % (11.6-16.5) H 09/05/21 05:43 Plt Count 384 X10^3/uL (150.0-450.0) 09/05/21 05:43 Plt Count Comment Adequate (ADEQUATE) 09/03/21 06:17 MPV 6.4 fL (7.4-11.0) L 09/05/21 05:43 Neut % (Auto) 65.2 % (42.0-75.0) 09/05/21 05:43 Lymph % (Auto) 19.5 % (21.0-51.0) L 09/05/21 05:43 [place] % (Auto) 13.7 % (0.0-13.0) H 09/05/21 05:43 Eos % (Auto) 1.1 % (0.9-2.9) 09/05/21 05:43 Baso % (Auto) 0.5 % (0.2-1.0) 09/05/21 05:43 Neut # (Auto) 5.2 x10^3/uL (2.2-4.8) H 09/05/21 05:43 Lymph # (Auto) 1.6 X10^3/uL (1.3-2.9) 09/05/21 05:43 [place] # (Auto) 1.1 x10^3/uL (0.3-0.8) H 09/05/21 05:43 Eos # (Auto) 0.1 x10^3/uL (0.0-0.2) 09/05/21 05:43 Baso # (Auto) 0.0 X10^3/uL (0.0-0.1) 09/05/21 05:43 Absolute Nucleated RBC 0.1 /100WBC 09/05/21 05:43 Plt Morphology Comment Abnormal (NORMAL) A 09/03/21 06:17 RBC Morphology Normal (NORMAL) 09/03/21 06:17 Hypochromasia 1+ A 09/02/21 00:26 Anisocytosis 1+ A 09/03/21 06:17 Sodium 129 mmol/L (136-145) L 09/05/21 05:43 Corrected Sodium TNP 09/05/21 05:43 Potassium 3.7 mmol/L (3.5-5.1) 09/05/21 05:43 Chloride 95 mmol/L (98-107) L 09/05/21 05:43 Carbon Dioxide 24.6 mmol/L (21-32) 09/05/21 05:43 BUN 5 mg/dL (7-18) L 09/05/21 05:43 Creatinine 0.50 mg/dL (0.55-1.02) L 09/05/21 05:43 Est GFR (MDRD) Af Amer > 60 (>60) 09/05/21 05:43 Est GFR (MDRD) Non-Af > 60 (>60) 09/05/21 05:43 Glucose 90 mg/dL (65-99) 09/05/21 05:43 Calcium 8.1 mg/dL (8.5-10.1) L 09/05/21 05:43 Corrected Calcium 9.0 mg/dL (8.5-10.1) 09/05/21 05:43 Magnesium 2.1 mg/dL (1.7-2.9) 09/03/21 06:17 Iron 9 ug/dL (50-175) L 09/02/21 18:34 Transferrin 199 mg/dL (202-364) L 09/02/21 18:34 Ferritin 13 ng/mL (8-252) 09/02/21 18:34 Total Bilirubin 0.50 mg/dL (0.2-1.0) 09/05/21 05:43 AST 24 Units/L (15-37) 09/05/21 05:43 ALT 14 Units/L (12-78) 09/05/21 05:43 Alkaline Phosphatase 94 Units/L (46-116) 09/05/21 05:43 Total Protein 7.0 g/dL (6.4-8.2) 09/05/21 05:43 Albumin 2.9 g/dL (3.4-5.0) L 09/05/21 05:43 Globulin 4.1 g/dL (2.5-4.5) 09/05/21 05:43 Albumin/Globulin Ratio 0.7 Ratio (1.1-2.1) L 09/05/21 05:43 Vitamin B12 1636 pg/mL (193-986) H 09/02/21 18:34 Folate 8.6 ng/mL (>8.6) 09/02/21 18:34 Specimen Type Clean catch urine 09/02/21 22:04 Urine Color Yellow (YELLOW) 09/02/21 22:04 Urine Appearance Clear (CLEAR) 09/02/21 22:04 Urine pH 7.0 (5.0 - 8.0) 09/02/21 22:04 Ur Specific [place] 1.010 (1.000-1.030) 09/02/21 22:04 Urine Protein 1+ (NEGATIVE) 09/02/21 22:04 Urine Glucose (UA) Negative (NEGATIVE) 09/02/21 22:04 Urine Ketones Negative (NEGATIVE) 09/02/21 22:04 Urine Occult Blood Negative (NEGATIVE) 09/02/21 22:04 Urine Nitrite Negative (NEGATIVE) 09/02/21 22:04 Urine Bilirubin Negative (NEGATIVE) 09/02/21 22:04 Urine Urobilinogen 1+ (NORMAL) 09/02/21 22:04 Ur Leukocyte Esterase 1+ (NEGATIVE) 09/02/21 22:04 Urine RBC None seen /HPF (0-3) 09/02/21 22:04 Urine WBC 0-2 /HPF (0-5) 09/02/21 22:04 Ur Squamous Epith Cells Many /HPF (NEGATIVE) 09/02/21 22: Amorphous Sediment 1+ /HPF (NEGATIVE) 09/02/21 22:04 Urine Bacteria Trace /HPF (NEGATIVE) 09/02/21 22:04 Ur Culture Indicated? No/not indicated 09/02/21 22:04 Urine Opiates Screen Positive (NEG=<300) A 09/02/21 22:04 Urine Methadone Screen Negative (NEG=<300) 09/02/21 22:04 Ur Barbiturates Screen Negative (NEG=<200) 09/02/21 22:04 Ur Phencyclidine Scrn Negative (NEG=<25) 09/02/21 22:04 Ur Amphetamines Screen Negative (NEG=<1000) 09/02/21 22:04 U Benzodiazepines Scrn Negative (NEG=<200) 09/02/21 22:04 Urine Cocaine Screen Negative (NEG=<300) 09/02/21 22:04 U Marijuana (THC) Screen Negative (NEG=<50) 09/02/21 22:04 Ethyl Alcohol mg/dL 44 mg/dL (0-19.9) H 09/02/21 00:26 SARS CoV-2 RNA Rapid STONE Negative (NEGATIVE) 09/01/21 23:54 Tissue Pathology To follow 09/04/21 08:16 Blood Type B POSITIVE 09/02/21 06:15 Antibody Screen Positive 09/02/21 06:15 Antibody Identification NEGATIVE BY ARC 09/02/21 06:15 Crossmatch See Detail 09/02/21 06:15 - Assessment and Plan 1: large duodenal ulcer . gastro duodenitis . esophagitis . severe anemia .( corrected ). maybe cholecysto-duodenal fistula with pneumobilia. alcohol abuse .. same medications .. added Carafate PO . to follow in one week .. - Problem Patient Problems: Patient Problems Anemia (Acute) D64.9 GI bleed (Acute) K92.2 Hyponatremia (Acute) E87.1 Hypokalemia (Acute) E87.6 Chronic pain (Chronic) G89.29
[2021-09-05] MEDS ORDERED: RESTORIL CAP 15 MG PO PRN (17:54)
[2021-09-06] MEDS: NS 1,000 ML IV 1,000 ML IV SCH ×2 (02:18→11:29)
[2021-09-06] MEDS: NORCO 5/325 MG TAB PO PRN ×2 (03:30→09:19)
[2021-09-06] MEDS: MORPHINE SULFATE INJ 2 MG INJ IVP PRN (05:58)
[2021-09-06] MEDS: CARAFATE PO SCH ×2 (06:00→11:29)
[2021-09-06 06:16] LABS: HEMOGLOBIN 12.8 g/dL (12.0-16.0)
[2021-09-06 06:23] LABS: BASOPHILS % (AUTO) 0.3 % (0.2-1.0); EOSINOPHILS # (AUTO) 0.1 x10^3/uL (0.0-0.2); EOSINOPHILS % (AUTO) 1.4 % (0.9-2.9); HEMATOCRIT 37.4 % (36.0-47.0); LYMPHOCYTES # (AUTO) 1.9 X10^3/uL (1.3-2.9); LYMPHOCYTES % (AUTO) 31.7 % (21.0-51.0); MEAN CORPUSCULAR HEMOGLOBIN 29.4 pg (27.0-34.0); MEAN CORPUSCULAR HGB CONC 34.3 g/dL (33.0-35.0); MEAN CORPUSCULAR VOLUME 85.8 fL (80.0-100.0); MEAN PLATELET VOLUME 6.6 fL (7.4-11.0); MONOCYTES # (AUTO) 1.4 x10^3/uL (0.3-0.8); MONOCYTES % (AUTO) 24.2 % (0.0-13.0); NEUTROPHILS # (AUTO) 2.5 x10^3/uL (2.2-4.8); NEUTROPHILS % (AUTO) 42.4 % (42.0-75.0); RED BLOOD COUNT 4.36 X10^6/uL (3.5-5.4); RED CELL DISTRIBUTION WIDTH 16.9 % (11.6-16.5); WHITE BLOOD COUNT 5.9 X10^3/uL (3.6-10.0)
[2021-09-06 06:47] LABS: ALANINE AMINOTRANSFERASE 14 Units/L (12-78); ALBUMIN 2.6 g/dL (3.4-5.0); ALKALINE PHOSPHATASE 87 Units/L (46-116); ASPARTATE AMINO TRANSFERASE 18 Units/L (15-37); BLOOD UREA NITROGEN 6 mg/dL (7-18); CARBON DIOXIDE 23.9 mmol/L (21-32); CHLORIDE 101 mmol/L (98-107); COR CA(FOR HYPOALB) 9.1 mg/dL (8.5-10.1); COR NA(FOR HYPERGLY) 138 mmol/L (136-145); CREATININE 0.58 mg/dL (0.55-1.02); SODIUM 138 mmol/L (136-145); TOTAL PROTEIN 6.4 g/dL (6.4-8.2); eGFR NON BLACK RACES > 60 (>60)
[2021-09-06 07:19] LABS: BAND NEUTROPHILS % 1 % (0-10); METAMYELOCYTES % 3; MYELOCYTES % 1; PLATELET MORPHOLOGY COMMENT NORMAL (NORMAL)
[2021-09-06 07:20] LABS: ANISOCYTOSIS 1+
[2021-09-06] MEDS: LEVSIN/MAALOX/LIDOC VISC PO SCH ×2 (09:15→12:25)
[2021-09-06] MEDS: NICOTINE PATCH TD SCH (09:15)
[2021-09-06] MEDS: PROTONIX INJ 40 MG VIAL IVP SCH (09:15)
[2021-09-06] MEDS: PEPCID 20 MG VIAL 20 MG in NS 50 ML IV 50 ML IV SCH (09:19)
[2021-09-06 11:41] VITALS: BP 183/85
[2021-09-06] MEDS: TYLENOL 325 MG TAB PO PRN (13:12)
--- NOTE | 2021-09-06 14:04 | DR.PROGNOT ---
Hospital Progress Notes - Progress Note for Day of: Progress Note Date: 09/06/21 - Chief Complaint Chief Complaint: . tolerating diet .no nausea .. mild abdominal and back pain . no bleeding .. stable Hgb, Hct .. normal [place]/CREAT. afebrile .. - Past Medical Family Social History Past Med/Fam/Surg Hx: No changes since H&P Allergies: Allergies No Known Drug Allergies Allergy (Verified 08/08/21 22:49) - Review Of Systems ROS: No change since H&P - Vital Signs Vital Signs: Temperature 98.7 F Pulse Rate [Left Radial] 84 Pulse Rate 98 Respiratory Rate 18 Blood Pressure [Left Arm] 183/85 Blood Pressure 117/61 O2 Sat by Pulse Oximetry 100 - Physical Exam Oriented: Normal Eyes: Normal Ear: Normal Nose: Normal Throat: Normal Respiratory: Generalized, Diminished Cardiovascular: Normal : Normal GI:Auscultation: Normal GI:Palpation: Normal GI: Tenderness: Mild, Other (soft , flat abdomen with only mild to moderate epigastric tenderness . BS+) Skin: Normal Musculoskeletal: Normal Psychiatric: Normal Mood Description: Calm Affect: Normal Speech Pattern: Clear, Appropriate - Laboratory and Diagnostics Result Diagrams: 09/06/21 05:50 09/06/21 05:50 Labs: Laboratory WBC 5.9 X10^3/uL (3.6-10.0) 09/06/21 05:50 RBC 4.36 X10^6/uL (3.5-5.4) 09/06/21 05:50 Hgb 12.8 g/dL (12.0-16.0) 09/06/21 05:50 Hct 37.4 % (36.0-47.0) 09/06/21 05:50 MCV 85.8 fL (80.0-100.0) 09/06/21 05:50 MCH 29.4 pg (27.0-34.0) 09/06/21 05:50 MCHC 34.3 g/dL (33.0-35.0) 09/06/21 05:50 RDW 16.9 % (11.6-16.5) H 09/06/21 05:50 Plt Count 414 X10^3/uL (150.0-450.0) 09/06/21 05:50 Plt Count Comment Adequate (ADEQUATE) 09/06/21 05:50 MPV 6.6 fL (7.4-11.0) L 09/06/21 05:50 Neut % (Auto) 42.4 % (42.0-75.0) 09/06/21 05:50 Lymph % (Auto) 31.7 % (21.0-51.0) 09/06/21 05:50 [place] % (Auto) 24.2 % (0.0-13.0) H 09/06/21 05:50 Eos % (Auto) 1.4 % (0.9-2.9) 09/06/21 05:50 Baso % (Auto) 0.3 % (0.2-1.0) 09/06/21 05:50 Neut # (Auto) 2.5 x10^3/uL (2.2-4.8) 09/06/21 05:50 Lymph # (Auto) 1.9 X10^3/uL (1.3-2.9) 09/06/21 05:50 [place] # (Auto) 1.4 x10^3/uL (0.3-0.8) H 09/06/21 05:50 Eos # (Auto) 0.1 x10^3/uL (0.0-0.2) 09/06/21 05:50 Baso # (Auto) 0.0 X10^3/uL (0.0-0.1) 09/06/21 05:50 Absolute Nucleated RBC 0.0 /100WBC 09/06/21 05:50 Total Counted 100 09/06/21 05:50 Neutrophils % (Manual) 50 % (39-76) 09/06/21 05:50 Band Neutrophils % 1 % (0-10) 09/06/21 05:50 Lymphocytes % (Manual) 27 % (13-43) 09/06/21 05:50 Monocytes % (Manual) 18 % (4-9) H 09/06/21 05:50 Metamyelocytes % 3 09/06/21 05:50 Myelocytes % 1 09/06/21 05:50 Plt Morphology Comment Normal (NORMAL) 09/06/21 05:50 RBC Morphology Abnormal (NORMAL) A 09/06/21 05:50 Hypochromasia 1+ A 09/02/21 00:26 Anisocytosis 1+ A 09/06/21 05:50 Sodium 138 mmol/L (136-145) 09/06/21 05:50 Corrected Sodium 138 mmol/L (136-145) 09/06/21 05:50 Potassium 3.6 mmol/L (3.5-5.1) 09/06/21 05:50 Chloride 101 mmol/L (98-107) 09/06/21 05:50 Carbon Dioxide 23.9 mmol/L (21-32) 09/06/21 05:50 BUN 6 mg/dL (7-18) L 09/06/21 05:50 Creatinine 0.58 mg/dL (0.55-1.02) 09/06/21 05:50 Est GFR (MDRD) Af Amer > 60 (>60) 09/06/21 05:50 Est GFR (MDRD) Non-Af > 60 (>60) 09/06/21 05:50 Glucose 115 mg/dL (65-99) H 09/06/21 05:50 Calcium 8.0 mg/dL (8.5-10.1) L 09/06/21 05:50 Corrected Calcium 9.1 mg/dL (8.5-10.1) 09/06/21 05:50 Magnesium 2.1 mg/dL (1.7-2.9) 09/03/21 06:17 Iron 9 ug/dL (50-175) L 09/02/21 18:34 Transferrin 199 mg/dL (202-364) L 09/02/21 18:34 Ferritin 13 ng/mL (8-252) 09/02/21 18:34 Total Bilirubin 0.30 mg/dL (0.2-1.0) 09/06/21 05:50 AST 18 Units/L (15-37) 09/06/21 05:50 ALT 14 Units/L (12-78) 09/06/21 05:50 Alkaline Phosphatase 87 Units/L (46-116) 09/06/21 05:50 Total Protein 6.4 g/dL (6.4-8.2) 09/06/21 05:50 Albumin 2.6 g/dL (3.4-5.0) L 09/06/21 05:50 Globulin 3.8 g/dL (2.5-4.5) 09/06/21 05:50 Albumin/Globulin Ratio 0.7 Ratio (1.1-2.1) L 09/06/21 05:50 Vitamin B12 1636 pg/mL (193-986) H 09/02/21 18:34 Folate 8.6 ng/mL (>8.6) 09/02/21 18:34 Specimen Type Clean catch urine 09/02/21 22:04 Urine Color Yellow (YELLOW) 09/02/21 22:04 Urine Appearance Clear (CLEAR) 09/02/21 22:04 Urine pH 7.0 (5.0 - 8.0) 09/02/21 22:04 Ur Specific [place] 1.010 (1.000-1.030) 09/02/21 22:04 Urine Protein 1+ (NEGATIVE) 09/02/21 22: Urine Glucose (UA) Negative (NEGATIVE) 09/02/21 22: Urine Ketones Negative (NEGATIVE) 09/02/21 22:04 Urine Occult Blood Negative (NEGATIVE) 09/02/21 22: Urine Nitrite Negative (NEGATIVE) 09/02/21 22: Urine Bilirubin Negative (NEGATIVE) 09/02/21 22:04 Urine Urobilinogen 1+ (NORMAL) 09/02/21 22:04 Ur Leukocyte Esterase 1+ (NEGATIVE) 09/02/21 22:04 Urine RBC None seen /HPF (0-3) 09/02/21 22:04 Urine WBC 0-2 /HPF (0-5) 09/02/21 22:04 Ur Squamous Epith Cells Many /HPF (NEGATIVE) 09/02/21 22: Amorphous Sediment 1+ /HPF (NEGATIVE) 09/02/21 22: Urine Bacteria Trace /HPF (NEGATIVE) 09/02/21 22:04 Ur Culture Indicated? No/not indicated 09/02/21 22:04 Stool Description 250g brown formed 09/05/21 14:40 Stl Occult Blood (IFOB) Positive (NEGATIVE) A 09/05/21 14:40 Urine Opiates Screen Positive (NEG=<300) A 09/02/21 22:04 Urine Methadone Screen Negative (NEG=<300) 09/02/21 22:04 Ur Barbiturates Screen Negative (NEG=<200) 09/02/21 22:04 Ur Phencyclidine Scrn Negative (NEG=<25) 02/05/22 22:04 Ur Amphetamines Screen Negative (NEG=<1000) 09/02/21 22:04 U Benzodiazepines Scrn Negative (NEG=<200) 09/02/21 22:04 Urine Cocaine Screen Negative (NEG=<300) 09/02/21 22:04 U Marijuana (THC) Screen Negative (NEG=<50) 09/02/21 22:04 Ethyl Alcohol mg/dL 44 mg/dL (0-19.9) H 09/02/21 00:26 SARS CoV-2 RNA Rapid STONE Negative (NEGATIVE) 09/01/21 23:54 Tissue Pathology To follow 09/04/21 08:16 Blood Type B POSITIVE 09/02/21 06:15 Antibody Screen Positive 09/02/21 06:15 Antibody Identification NEGATIVE BY ARC 09/02/21 06:15 Crossmatch See Detail 09/02/21 06:15 - Assessment and Plan 1: large duodenal ulcer .no bleeding now . gastro duodenitis . esophagitis . severe anemia .( corrected ). maybe cholecysto-duodenal fistula with pneumobilia. alcohol abuse .. same medications .. added Carafate PO . Pt could be discharged to be followed by surgery and GI regarding the ulcer and Gallstones with biliary fistula .. - Problem Patient Problems: Patient Problems Anemia (Acute) D64.9 GI bleed (Acute) K92.2 Hyponatremia (Acute) E87.1 Hypokalemia (Acute) E87.6 Chronic pain (Chronic) G89.29
--- NOTE | 2021-11-13 09:14 | PCM.PROG ---
Progress Note - Progress Note for Day of Date of Exam: 09/05/21 - Subjective Subjective: WAS ADMITTED ON 09/02 FOR TREATMENT OF SYMPTOMATIC ANEMIA, GI BLEED, HYPONATREMIA, AND HYPOKALEMIA. SHE HAS RECEIVED FOUR UNITS OF PACKED RED BLOOD CELLS SINCE ADMISSION. TODAY, SHE IS ALERT AND ORIENTED, LYING IN BED ON MORNING ROUNDS. SHE IS HAVING LESS ABDOMINAL PAIN TODAY AND DIARRHEA HAS STOPPED. ON EXAMINATION, HEART IS REGULAR IN RATE AND RHYTHM. BILATERAL LUNGS CLEAR TO AUSCULTATION. ABDOMEN IS FLAT, SOFT, AND NOTED WITH DIFFUSE TENDERNESS. NORMAL BOWEL SOUNDS NOTED IN ALL QUADRANTS. HER VITALS THIS MORNING ARE: 97.4-82-18-97%-165/81. LABS WERE OBTAINED. WBC 8.0, RBC 13.1, HCT 38.4, SODIUM 129, POTASSIUM 3.7, CHLORIDE 95, BUN 5, CREATININE 0.50, CALCIUM 8.1, ALBUMIN 2.9. SHE HAD AN EGD DONE YESTERDAY WHICH REVEALED A LARGE DUODENAL ULCER, ACUTE GASTRODUODENITIS WITH MULTIPLE AREAS OF EROSION WITH FRIABLE MUCOSE, AND MODERATE SIZE HIATAL HERNIA AND REFLUX ESOPHAGITIS. SHE IS CURRENTLY RECEIVING NORMAL SALINE AT 150 ML/HR, PEPCID 20MG IV Q12H, PROTONIX 40MG IV BID, CARAFATE 1G PO ACHS, MORPHINE SULFATE 1-2MG IV Q4H PRN PAIN, AND THE POTASSIUM AND MAGNESIUM PROTOCOLS. WE WILL CONTINUE WITH CURRENT PLAN OF CARE TODAY. OTHERWISE, WE PLAN TO FOLLOW UP WITH AM LABS AND CONTINUE TO MONITOR. TIME SPENT ON CLINICAL ASSESSMENT, REVIEWING LABS AND IMAGING, DECISION MAKING, AND DOCUMENTATION GREATER THAN 45 MINUTES. - Past Medical Family Social History Past Med/Fam/Surg Hx: No changes since H&P Allergies: Allergies No Known Drug Allergies Allergy (Verified 08/08/21 22:49) - Review of Systems ROS: No change since H&P - Vital Signs and I&O's Vital Signs: Temperature 98.7 F Pulse Rate [Left Radial] 84 Pulse Rate 98 Respiratory Rate 18 Blood Pressure [Left Arm] 183/85 Blood Pressure 117/61 O2 Sat by Pulse Oximetry 100 - Physical Exam Oriented: Normal Eyes: Normal Ear: Normal Nose: Normal Throat: Normal Respiratory: Generalized, Diminished Cardiovascular: Normal : Normal Auscultation: Bowel Sounds: Normal Palpation: Normal Tenderness: Mild, Other (soft , flat abdomen with only mild to moderate epigastric tenderness . BS+) Skin: Normal Musculoskeletal: Normal Psychiatric: Normal Mood Description: Calm Affect: Normal Speech Pattern: Clear, Appropriate - Laboratory and Diagnostics Result Diagrams: 09/06/21 05:50 09/06/21 05:50 Labs: Laboratory WBC 5.9 X10^3/uL (3.6-10.0) 09/06/21 05:50 RBC 4.36 X10^6/uL (3.5-5.4) 09/06/21 05:50 Hgb 12.8 g/dL (12.0-16.0) 09/06/21 05:50 Hct 37.4 % (36.0-47.0) 09/06/21 05:50 MCV 85.8 fL (80.0-100.0) 09/06/21 05:50 MCH 29.4 pg (27.0-34.0) 09/06/21 05:50 MCHC 34.3 g/dL (33.0-35.0) 09/06/21 05:50 RDW 16.9 % (11.6-16.5) H 09/06/21 05:50 Plt Count 414 X10^3/uL (150.0-450.0) 09/06/21 05:50 Plt Count Comment Adequate (ADEQUATE) 09/06/21 05:50 MPV 6.6 fL (7.4-11.0) L 09/06/21 05:50 Neut % (Auto) 42.4 % (42.0-75.0) 09/06/21 05:50 Lymph % (Auto) 31.7 % (21.0-51.0) 09/06/21 05:50 [place] % (Auto) 24.2 % (0.0-13.0) H 09/06/21 05:50 Eos % (Auto) 1.4 % (0.9-2.9) 09/06/21 05:50 Baso % (Auto) 0.3 % (0.2-1.0) 09/06/21 05:50 Neut # (Auto) 2.5 x10^3/uL (2.2-4.8) 09/06/21 05:50 Lymph # (Auto) 1.9 X10^3/uL (1.3-2.9) 09/06/21 05:50 [place] # (Auto) 1.4 x10^3/uL (0.3-0.8) H 09/06/21 05:50 Eos # (Auto) 0.1 x10^3/uL (0.0-0.2) 09/06/21 05:50 Baso # (Auto) 0.0 X10^3/uL (0.0-0.1) 09/06/21 05:50 Absolute Nucleated RBC 0.0 /100WBC 09/06/21 05:50 Total Counted 100 09/06/21 05:50 Neutrophils % (Manual) 50 % (39-76) 09/06/21 05:50 Band Neutrophils % 1 % (0-10) 09/06/21 05:50 Lymphocytes % (Manual) 27 % (13-43) 09/06/21 05:50 Monocytes % (Manual) 18 % (4-9) H 09/06/21 05:50 Metamyelocytes % 3 09/06/21 05:50 Myelocytes % 1 09/06/21 05:50 Plt Morphology Comment Normal (NORMAL) 09/06/21 05:50 RBC Morphology Abnormal (NORMAL) A 09/06/21 05:50 Hypochromasia 1+ A 09/02/21 00:26 Anisocytosis 1+ A 09/06/21 05:50 Sodium 138 mmol/L (136-145) 09/06/21 05:50 Corrected Sodium 138 mmol/L (136-145) 09/06/21 05:50 Potassium 3.6 mmol/L (3.5-5.1) 09/06/21 05:50 Chloride 101 mmol/L (98-107) 09/06/21 05:50 Carbon Dioxide 23.9 mmol/L (21-32) 09/06/21 05:50 BUN 6 mg/dL (7-18) L 09/06/21 05:50 Creatinine 0.58 mg/dL (0.55-1.02) 09/06/21 05:50 Est GFR (MDRD) Af Amer > 60 (>60) 09/06/21 05:50 Est GFR (MDRD) Non-Af > 60 (>60) 09/06/21 05:50 Glucose 115 mg/dL (65-99) H 09/06/21 05:50 Calcium 8.0 mg/dL (8.5-10.1) L 09/06/21 05:50 Corrected Calcium 9.1 mg/dL (8.5-10.1) 09/06/21 05:50 Magnesium 2.1 mg/dL (1.7-2.9) 09/03/21 06:17 Iron 9 ug/dL (50-175) L 09/02/21 18:34 Transferrin 199 mg/dL (202-364) L 09/02/21 18:34 Ferritin 13 ng/mL (8-252) 09/02/21 18:34 Total Bilirubin 0.30 mg/dL (0.2-1.0) 09/06/21 05:50 AST 18 Units/L (15-37) 09/06/21 05:50 ALT 14 Units/L (12-78) 09/06/21 05:50 Alkaline Phosphatase 87 Units/L (46-116) 09/06/21 05:50 Total Protein 6.4 g/dL (6.4-8.2) 09/06/21 05:50 Albumin 2.6 g/dL (3.4-5.0) L 09/06/21 05:50 Globulin 3.8 g/dL (2.5-4.5) 09/06/21 05:50 Albumin/Globulin Ratio 0.7 Ratio (1.1-2.1) L 09/06/21 05:50 Vitamin B12 1636 pg/mL (193-986) H 09/02/21 18:34 Folate 8.6 ng/mL (>8.6) 09/02/21 18:34 Specimen Type Clean catch urine 09/02/21 22:04 Urine Color Yellow (YELLOW) 09/02/21 22:04 Urine Appearance Clear (CLEAR) 09/02/21 22:04 Urine pH 7.0 (5.0 - 8.0) 09/02/21 22:04 Ur Specific [place] 1.010 (1.000-1.030) 09/02/21 22:04 Urine Protein 1+ (NEGATIVE) 09/02/21 22:04 Urine Glucose (UA) Negative (NEGATIVE) 09/02/21 22:04 Urine Ketones Negative (NEGATIVE) 09/02/21 22:04 Urine Occult Blood Negative (NEGATIVE) 09/02/21 22:04 Urine Nitrite Negative (NEGATIVE) 09/02/21 22:04 Urine Bilirubin Negative (NEGATIVE) 09/02/21 22:04 Urine Urobilinogen 1+ (NORMAL) 09/02/21 22:04 Ur Leukocyte Esterase 1+ (NEGATIVE) 09/02/21 22:04 Urine RBC None seen /HPF (0-3) 09/02/21 22:04 Urine WBC 0-2 /HPF (0-5) 09/02/21 22:04 Ur Squamous Epith Cells Many /HPF (NEGATIVE) 09/02/21 22:04 Amorphous Sediment 1+ /HPF (NEGATIVE) 09/02/21 22:04 Urine Bacteria Trace /HPF (NEGATIVE) 09/02/21 22:04 Ur Culture Indicated? No/not indicated 09/02/21 22:04 Stool Description 250g brown formed 09/05/21 14:40 Stl Occult Blood (IFOB) Positive (NEGATIVE) A 09/05/21 14:40 Urine Opiates Screen Positive (NEG=<300) A 09/02/21 22:04 Urine Methadone Screen Negative (NEG=<300) 09/02/21 22:04 Ur Barbiturates Screen Negative (NEG=<200) 09/02/21 22:04 Ur Phencyclidine Scrn Negative (NEG=<25) 09/02/21 22:04 Ur Amphetamines Screen Negative (NEG=<1000) 09/02/21 22:04 U Benzodiazepines Scrn Negative (NEG=<200) 09/02/21 22:04 Urine Cocaine Screen Negative (NEG=<300) 09/02/21 22:04 U Marijuana (THC) Screen Negative (NEG=<50) 09/02/21 22:04 Ethyl Alcohol mg/dL 44 mg/dL (0-19.9) H 09/02/21 00:26 SARS CoV-2 RNA Rapid STONE Negative (NEGATIVE) 09/01/21 23:54 Tissue Pathology To follow 09/04/21 08:16 Blood Type B POSITIVE 09/02/21 06:15 Antibody Screen Positive 09/02/21 06:15 Antibody Identification NEGATIVE BY ARC 09/02/21 06:15 Crossmatch See Detail 09/02/21 06:15 - Plan (1) GI bleed Status: Acute Qualifiers: Gastritis type: unspecified gastritis Plan: EGD TODAY, NORMAL SALINE AT 150 ML/HR, PEPCID 20MG IV Q12H, PROTONIX 40MG IV BID, CARAFATE 1G PO ACHS, MORPHINE SULFATE 1-2MG IV Q4H PRN PAIN. CONSULT GENERAL SURGERY (2) Anemia Status: Acute Qualifiers: Anemia type: iron deficiency Iron deficiency anemia type: chronic blood loss Qualified Code(s): D50.0 - Iron deficiency anemia secondary to blood loss (chronic) (3) Hyponatremia Status: Acute (4) Hypokalemia Status: Acute (5) Chronic pain Status: Chronic Qualifiers: Chronic pain type: chronic pain syndrome Qualified Code(s): G89.4 - Chronic pain syndrome
== END 2021-09-06 13:55 | disposition home or self-care (01) | DRG 378 ==
LOC: ER 22:42 → MED/SURG 09-02 07:00
PROVIDERS: ADMIT Internal Medicine; ATTEND Internal Medicine
DX: Z20.822 Contact with and (suspected) exposure to COVID-19; K92.1 Melena; K21.00 Gastro-esophageal reflux disease with esophagitis, without bleeding; E87.6 Hypokalemia; F10.10 Alcohol abuse, uncomplicated; K29.01 Acute gastritis with bleeding; K44.9 Diaphragmatic hernia without obstruction or gangrene; E87.1 Hypo-osmolality and hyponatremia; D50.0 Iron deficiency anemia secondary to blood loss (chronic); I87.2 Venous insufficiency (chronic) (peripheral); G89.29 Other chronic pain; R10.84 Generalized abdominal pain; K26.3 Acute duodenal ulcer without hemorrhage or perforation